=== PATIENT | female | born 1955 | race Caucasian/White ===

== ENCOUNTER → 2016-12-11 | Outpatient (CLI) | payer MEDICARE, MEDICAID ==
[~2016-12-11] MED LIST: BUPR150T13 PO; GABA600T2 PO; LEVO50TA5 PO; LOSA1TAB18 PO; PROP10TA PO
== END | disposition home or self-care (01) ==
LOC: CFH 10:40
PROVIDERS: ATTEND Nurse Practitioner
DX: Z13.820 Encounter for screening for osteoporosis (principal); Z12.2 Encounter for screening for malignant neoplasm of respiratory organs; M81.0 Age-related osteoporosis without current pathological fracture; I72.8 Aneurysm of other specified arteries; K44.9 Diaphragmatic hernia without obstruction or gangrene; F17.210 Nicotine dependence, cigarettes, uncomplicated; M41.84 Other forms of scoliosis, thoracic region
CPT/HCPCS: 77080; G0297

== ENCOUNTER 2019-10-27 13:22 | Inpatient (IN) | payer MEDICARE, MEDICAID ==
[~2019-10-27] VITALS: Ht 162.6 cm; Wt 47.8 kg
[~2019-10-27 13:22] MED LIST changes: -GABA600T2 PO; +GABA600T7 PO; -LOSA1TAB18 PO; +LOSA1TAB25 PO; -PROP10TA PO; +PROP10TA16 PO
--- NOTE | 2019-10-27 13:36 | NUR ---
TASK RN: [facility] W CO L HIP PAIN SP MECHANICAL GLF. ALSO REPORTS HEAD/NECK/ BILAT KNEE PAIN, ARRIVES IN C-COLLAR. LLE NOTED TO BE SHORTENED AND INTERNALLY ROTATED WITH OBVIOUS DEFOMITY. DISAL PULSES, SENSATION AND STRENGH INTACT. HX OF BILAT HIP FX, UNKNOWN SURGICAL STATUS. NOT ON BLOOD THINNERS BP/SPO2/ECG MONITORING IN PLACE. REPORT TO FRED RUTH, MANE
--- NOTE | 2019-10-27 13:52 | NUR ---
PUREWICK PLACED FOR COMFORT.
[2019-10-27] MEDS ORDERED: ONDANSETRON 2MG/ML, 2ML ONE (13:55)
[2019-10-27] MEDS ORDERED: HYDROmorphone 1 MG/ML, 1ML INJ ONE (13:55)
[2019-10-27] MEDS: HYDROmorphone 1 MG/ML, 1ML INJ IVPush PRN ×2 (13:59→15:39)
[2019-10-27] MEDS ORDERED: SODIUM CHLORIDE FLUSH 10ML SYR IVF ONE (14:00)
[2019-10-27] MEDS ORDERED: ONDANSETRON 2MG/ML, 2ML IVPush ONE (14:00)
--- NOTE | 2019-10-27 14:00 | NUR ---
PT LAYING ON GURNEY AWAKE & MOSTLY COMFORTABLE WHEN NOT MOVING, LINEN & GOWN CHANGED WITH PERICARE GIVEN AFTER PT LEAKED DURING VOID & PRIOR TO PUREWICK PLACEMENT, PT RESPONDS APPROP TO STAFF, COMFORT MEASURES PROVIDED, CALL LIGHT WITHIN REACH.
--- NOTE | 2019-10-27 14:10 | NUR ---
PT TO CT
[2019-10-27 14:16] LABS: ALANINE AMINOTRANSFERASE 19 U/L (12-78); ALBUMIN 3.1 g/dL (3.4-5.0); ANION GAP 7 mmol/L (5-15); CALCIUM 8.3 mg/dL (8.5-10.1); CHLORIDE 96 mmol/L (98-107); CREATININE 0.68 mg/dL (0.55-1.02)
--- NOTE | 2019-10-27 14:18 | NUR ---
PT RETURNED FROM CT
[2019-10-27 14:19] LABS: ALKALINE PHOSPHATASE 220 U/L (45-117); BILIRUBIN,TOTAL 0.3 mg/dL (0.2-1.0); TOTAL PROTEIN 6.1 g/dL (6.4-8.2)
[2019-10-27 14:25] LABS: INTERNATIONAL NORMALIZED RATIO 1.01 (0.93-1.1); PROTHROMBIN TIME 10.7 Seconds (9.6-11.5)
[2019-10-27 14:28] LABS: MEAN CORPUSCULAR HEMOGLOBIN 25.5 pg (27.0-34.8); MEAN CORPUSCULAR HGB CONC 31.1 g/dL (32.4-35.8); MEAN PLATELET VOLUME 6.5 fL (7.4-10.4); PLATELET COUNT 391 x10^3/uL (130-400); RED BLOOD COUNT 4.34 x10^6/uL (3.82-5.3)
--- NOTE | 2019-10-27 14:40 | NUR ---
PT TO RAD
[2019-10-27] MEDS ORDERED: POTASSIUM CHLORIDE 40 MEQ in SODIUM CHLORIDE 0.9% 500 ML IV ONE (15:00)
[2019-10-27 15:12] LABS: BASOPHILS % (AUTO) 0 % (0-1); EOSINOPHILS # (AUTO) 0.01 x10^3/uL (0-0.4); EOSINOPHILS % (AUTO) 0 % (1-7); LYMPHOCYTES # (AUTO) 0.81 x10^3/uL (1-3.4); LYMPHOCYTES % (AUTO) 16 % (22-44); MD SCAN; MONOCYTES # (AUTO) 0.45 x10^3/uL (0.2-0.8); MONOCYTES % (AUTO) 9 % (2-9); NEUTROPHILS % (AUTO) 75 % (42-75)
--- NOTE | 2019-10-27 16:02 | NUR ---
PT CONTINUES LAYING ON GURNEY RESTING WITH EYES CLOSED, MOSTLY COMFORTABLE WHEN NOT MOVING BUT C/O INCR PAIN AFTER XR- PAIN MED GIVEN PER EMAR, PT RESPONDS APPROP TO STAFF, COMFORT MEASURES PROVIDED, PUREWICK IN PLACE, CALL LIGHT WITHIN REACH.
--- NOTE | 2019-10-27 17:00 | NUR ---
PT LAYING ON GURNEY RESTING WITH EYES CLOSED, MOSTLY COMFORTABLE WHEN NOT MOVING BUT C/O INCR PAIN AFTER XR- PAIN MED GIVEN PER EMAR, SUPPL O2 VIA NC APPLIED WHILE SLEEPING, PT RESPONDS APPROP TO STAFF, COMFORT MEASURES PROVIDED, PUREWICK IN PLACE, CALL LIGHT WITHIN REACH.
[2019-10-27] MEDS ORDERED: PROPOFOL 10 MG/ML, 20ML ONE (17:35)
[2019-10-27] MEDS ORDERED: PROPOFOL 10 MG/ML, 20ML IVPush ONE (18:00)
--- NOTE | 2019-10-27 18:00 | NUR ---
PT CONTINUES TO LAY ON GURNEY RESTING WITH EYES CLOSED, C/O INCR PAIN- AWAITING SEDATION (CLOSED REDUCTION OF LT HIP DISLOCATION), SUPPL O2 VIA NC APPLIED WHILE RESTING, PT RESPONDS APPROP TO STAFF, COMFORT MEASURES PROVIDED, PUREWICK IN PLACE, CALL LIGHT WITHIN REACH.
--- NOTE | 2019-10-27 18:57 | NUR ---
Pt to be admitted to OR. Report called to Pedro.
[2019-10-27] MEDS ORDERED: hydrALAzine 20 MG/ML, 1ML ONE (19:40)
[2019-10-27] MEDS ORDERED: MORPHINE SULFATE 4 MG/ML, 1ML ONE (19:46)
[2019-10-27] MEDS ORDERED: BISACODYL 10 MG SUPP PR PRN (21:00)
[2019-10-27] MEDS ORDERED: ONDANSETRON ODT 4 MG PO PRN (21:00)
[2019-10-27] MEDS ORDERED: POLYETHYLENE GLYCOL 17 GM PACKET PO PRN (21:00)
[2019-10-27] MEDS ORDERED: ACETAMINOPHEN 325 MG TABLET PO PRN (21:00)
[2019-10-27] MEDS: PROPRANOLOL 10 MG TABLET PO SCH (21:21)
[2019-10-27] MEDS: GABAPENTIN 300 MG CAPSULE PO SCH (21:21)
[2019-10-27] MEDS: LOSARTAN 50MG TABLET PO SCH (21:21)
[2019-10-27] MEDS: OXYcodone IR 5MG TABLET PO PRN (21:22)
[2019-10-27 21:23] VITALS: BP 161/79
[2019-10-27] MEDS: NICOTINE 14MG/24 HR PATCH.TD24 TD SCH (21:23)
[2019-10-27] MEDS: HEPARIN 5,000 UNITS/ML, 1ML SQ SCH (21:23)
[2019-10-27 21:59] VITALS: BP 149/76
[2019-10-27] MEDS: NS + 20MEQ KCL 1,000 ML IV SCH (22:20)
[2019-10-27 23:11] VITALS: BP 161/79
[2019-10-28 00:37] VITALS: BP 157/72
[2019-10-28] MEDS: HEPARIN 5,000 UNITS/ML, 1ML SQ SCH ×3 (05:00→20:32)
[2019-10-28] MEDS: LEVOTHYROXINE 50 MCG TABLET PO SCH (05:24)
[2019-10-28] MEDS ORDERED: PROPOFOL 50 ML ONE (06:52)
[2019-10-28] MEDS ORDERED: FENTANYL PF 100 MCG/2ML ONE (06:53)
[2019-10-28] MEDS ORDERED: PROMETHAZINE 25 MG/ML, 1ML IVPush PRN (07:30)
[2019-10-28] MEDS ORDERED: DIAZEPAM 5 MG/ML, 2ML IVPush PRN (07:30)
[2019-10-28] MEDS ORDERED: ONDANSETRON 2MG/ML, 2ML IVPush PRN (07:30)
[2019-10-28] MEDS ORDERED: OXYcodone 5 MG/5 ML ORAL.SOL UDC PO PRN (07:30)
[2019-10-28] MEDS ORDERED: HYDROmorphone 1 MG/ML, 1ML INJ IVPush PRN (07:30)
[2019-10-28] MEDS ORDERED: EPHEDRINE 50 MG/ML, 1ML IM PRN (07:30)
[2019-10-28] MEDS ORDERED: ACETAMINOPHEN 325 MG TABLET PO PRN (07:30)
[2019-10-28] MEDS ORDERED: FENTANYL PF 100 MCG/2ML IV PRN (07:30)
[2019-10-28] MEDS ORDERED: OXYcodone 5 MG/5 ML ORAL.SOL UDC ONE (07:37)
[2019-10-28] MEDS: SENNA/DOCUSATE TABLET PO SCH ×2 (09:00→10:32)
[2019-10-28 09:29] VITALS: BP 124/73
[2019-10-28] MEDS ORDERED: MORPHINE SULFATE 4 MG/ML, 1ML IVPush PRN (10:00)
[2019-10-28] MEDS: LOSARTAN 50MG TABLET PO SCH ×2 (10:32→20:32)
[2019-10-28] MEDS: PROPRANOLOL 10 MG TABLET PO SCH ×3 (10:33→20:32)
[2019-10-28] MEDS: GABAPENTIN 300 MG CAPSULE PO SCH ×3 (10:33→20:32)
[2019-10-28 10:45] LABS: BASOPHILS # (AUTO) 0.01 x10^3/uL (0-0.1); BASOPHILS % (AUTO) 0 % (0-1); EOSINOPHILS # (AUTO) 0.04 x10^3/uL (0-0.4); EOSINOPHILS % (AUTO) 1 % (1-7); LYMPHOCYTES # (AUTO) 1.18 x10^3/uL (1-3.4); LYMPHOCYTES % (AUTO) 29 % (22-44); MD NO; MEAN CORPUSCULAR HEMOGLOBIN 25.6 pg (27.0-34.8); MEAN CORPUSCULAR HGB CONC 31.2 g/dL (32.4-35.8); MEAN PLATELET VOLUME 6.8 fL (7.4-10.4); MONOCYTES # (AUTO) 0.43 x10^3/uL (0.2-0.8); MONOCYTES % (AUTO) 11 % (2-9); NEUTROPHILS % (AUTO) 59 % (42-75); PLATELET COUNT 347 x10^3/uL (130-400); RED BLOOD COUNT 3.94 x10^6/uL (3.82-5.3)
[2019-10-28 10:52] LABS: ANION GAP 5 mmol/L (5-15); CALCIUM 8.1 mg/dL (8.5-10.1); CHLORIDE 104 mmol/L (98-107)
[2019-10-28 12:09] VITALS: BP 137/81
[2019-10-28] MEDS: OXYcodone IR 5MG TABLET PO PRN (12:50)
[2019-10-28] MEDS: NS + 20MEQ KCL 1,000 ML IV SCH (14:49)
[2019-10-28 18:41] VITALS: BP 124/73
[2019-10-28 20:31] VITALS: BP 129/71
[2019-10-28] MEDS: NICOTINE 14MG/24 HR PATCH.TD24 TD SCH (20:33)
[2019-10-29 01:00] VITALS: BP 108/72
[2019-10-29] MEDS: OXYcodone IR 5MG TABLET PO PRN ×2 (01:11→20:00)
[2019-10-29] MEDS: NS + 20MEQ KCL 1,000 ML IV SCH (03:32)
[2019-10-29] MEDS: LEVOTHYROXINE 50 MCG TABLET PO SCH (05:08)
[2019-10-29] MEDS: HEPARIN 5,000 UNITS/ML, 1ML SQ SCH ×3 (05:08→20:01)
[2019-10-29 06:29] LABS: ANION GAP 4 mmol/L (5-15); CALCIUM 8.1 mg/dL (8.5-10.1); CHLORIDE 108 mmol/L (98-107)
[2019-10-29 06:34] LABS: BASOPHILS # (AUTO) 0.04 x10^3/uL (0-0.1); BASOPHILS % (AUTO) 1 % (0-1); EOSINOPHILS # (AUTO) 0.04 x10^3/uL (0-0.4); EOSINOPHILS % (AUTO) 1 % (1-7); LYMPHOCYTES # (AUTO) 2.43 x10^3/uL (1-3.4); LYMPHOCYTES % (AUTO) 47 % (22-44); MD NO; MEAN CORPUSCULAR HEMOGLOBIN 26.4 pg (27.0-34.8); MEAN CORPUSCULAR HGB CONC 32.2 g/dL (32.4-35.8); MEAN PLATELET VOLUME 7.3 fL (7.4-10.4); MONOCYTES % (AUTO) 12 % (2-9); NEUTROPHILS # (AUTO) 2.04 x10^3/uL (1.8-6.8); NEUTROPHILS % (AUTO) 40 % (42-75); PLATELET COUNT 346 x10^3/uL (130-400); RED BLOOD COUNT 3.73 x10^6/uL (3.82-5.3); RED CELL DISTRIBUTION WIDTH 17.1 % (9.6-15.2)
[2019-10-29] MEDS ORDERED: GLUCAGON 1 MG IM PRN (07:00)
[2019-10-29] MEDS ORDERED: DEXTROSE 4 GM TAB.CHEW PO PRN (07:00)
[2019-10-29] MEDS ORDERED: DEXTROSE 50%, 50ML SYRINGE IVPush PRN (07:00)
[2019-10-29 08:04] VITALS: BP 101/52
[2019-10-29] MEDS: SODIUM CHLORIDE FLUSH 10ML SYR IVF SCH ×2 (08:12→20:02)
[2019-10-29] MEDS: LOSARTAN 50MG TABLET PO SCH ×2 (08:12→20:00)
[2019-10-29] MEDS: SENNA/DOCUSATE TABLET PO SCH (08:12)
[2019-10-29] MEDS: GABAPENTIN 300 MG CAPSULE PO SCH ×3 (08:12→20:01)
[2019-10-29] MEDS: PROPRANOLOL 10 MG TABLET PO SCH ×2 (08:12→20:00)
[2019-10-29] MEDS ORDERED: MAGNESIUM SULFATE PMX 2GM/50ML 50 ML IV ONE (11:00)
[2019-10-29 13:23] VITALS: BP 100/62
[2019-10-29 19:06] VITALS: BP 109/66
[2019-10-29] MEDS: NICOTINE 14MG/24 HR PATCH.TD24 TD SCH (20:01)
[2019-10-30] MEDS: NS + 20MEQ KCL 1,000 ML IV SCH ×2 (01:00→14:20)
[2019-10-30 01:40] VITALS: BP 105/68
[2019-10-30] MEDS: HEPARIN 5,000 UNITS/ML, 1ML SQ SCH ×2 (05:26→12:27)
[2019-10-30] MEDS: LEVOTHYROXINE 50 MCG TABLET PO SCH (05:26)
[2019-10-30 05:48] LABS: CHLORIDE 109 mmol/L (98-107)
[2019-10-30 05:57] LABS: ALANINE AMINOTRANSFERASE 12 U/L (12-78); ALKALINE PHOSPHATASE 149 U/L (45-117); ANION GAP 8 mmol/L (5-15); BILIRUBIN,TOTAL 0.4 mg/dL (0.2-1.0); CALCIUM 7.6 mg/dL (8.5-10.1); TOTAL PROTEIN 4.6 g/dL (6.4-8.2)
[2019-10-30 06:25] LABS: MEAN CORPUSCULAR HEMOGLOBIN 26.3 pg (27.0-34.8); MEAN PLATELET VOLUME 7.1 fL (7.4-10.4); PLATELET COUNT 261 x10^3/uL (130-400); RED BLOOD COUNT 3.55 x10^6/uL (3.82-5.3); RED CELL DISTRIBUTION WIDTH 16.6 % (9.6-15.2)
[2019-10-30 06:49] LABS: MD YES
[2019-10-30 06:52] LABS: ANISOCYTOSIS 1+; EOS#(MANUAL) 0.11 x10^3/uL (0.0-0.4); EOS% (MANUAL) 3 % (1-7); LYMPH#(MANUAL) 1.86 x10^3/uL (1-3.4); LYMPHS% (MANUAL) 53 % (22-44); MONOS#(MANUAL) 0.21 x10^3/uL (0.3-2.7); MONOS% (MANUAL) 6 % (2-9); SEG#(MANUAL) 1.33 x10^3/uL (1.8-6.8); SEGS% (MANUAL) 38 % (42-75)
[2019-10-30 06:53] LABS: <PLATELET ESTIMATE> ADEQUATE; <PLT MORPHOLOGY> NORMAL PLT MORPH
[2019-10-30 07:41] VITALS: BP 118/69
[2019-10-30] MEDS: LOSARTAN 50MG TABLET PO SCH (08:58)
[2019-10-30] MEDS: GABAPENTIN 300 MG CAPSULE PO SCH (08:58)
[2019-10-30] MEDS: PROPRANOLOL 10 MG TABLET PO SCH (08:58)
[2019-10-30] MEDS: OXYcodone IR 5MG TABLET PO PRN (08:59)
[2019-10-30] MEDS: SENNA/DOCUSATE TABLET PO SCH (08:59)
[2019-10-30] MEDS: SODIUM CHLORIDE FLUSH 10ML SYR IVF SCH (08:59)
[2019-10-30] MEDS ORDERED: HYDR10TA PO (10:55)
[2019-10-30 12:51] VITALS: BP 123/68
[2019-10-30] MEDS ORDERED: HYDROCORTISONE 10 MG TABLET PO SCH (17:00)
[2019-11-30] MEDS ORDERED: QUET50TA PO (22:47)
[2019-11-30] MEDS ORDERED: HYDR-3590 PO (22:48)
[2019-11-30] MEDS ORDERED: FLUD0.1T PO (22:50)
[2019-11-30] MEDS ORDERED: LACO200T PO (22:51)
[2019-11-30] MEDS ORDERED: LEVE750T8 PO (22:51)
[2019-11-30] MEDS ORDERED: FURO20TA3 PO (22:52)
[2019-11-30] MEDS ORDERED: OXCA150T18 PO (22:53)
[2019-12-15] MEDS ORDERED: HYDR20TA2 PO (19:34)
== END 2019-10-30 15:44 | disposition home health service (06) | DRG 559 ==
LOC: ED 14:18 → EDIP 19:37 → 4WST 19:59
PROVIDERS: ADMIT Internal Medicine; ATTEND Internal Medicine
PROC: 0SWSXJZ Revision of Synthetic Substitute in Left Hip Joint, Femoral Surface, External Approach (ICD-10-PCS; principal; 2019-10-28 07:00)
DX: T84.021A Dislocation of internal left hip prosthesis, initial encounter (principal); J96.00 Acute respiratory failure, unspecified whether with hypoxia or hypercapnia; E87.1 Hypo-osmolality and hyponatremia; E87.6 Hypokalemia; G40.909 Epilepsy, unspecified, not intractable, without status epilepticus; E03.9 Hypothyroidism, unspecified; I10 Essential (primary) hypertension; F17.210 Nicotine dependence, cigarettes, uncomplicated; Z96.643 Presence of artificial hip joint, bilateral; Z90.49 Acquired absence of other specified parts of digestive tract; W01.0XXA Fall on same level from slipping, tripping and stumbling without subsequent striking against object, initial encounter; Y93.89 Activity, other specified; Y92.098 Other place in other non-institutional residence as the place of occurrence of the external cause; Y99.8 Other external cause status; Z88.0 Allergy status to penicillin; M32.9 Systemic lupus erythematosus, unspecified; Y83.8 Other surgical procedures as the cause of abnormal reaction of the patient, or of later complication, without mention of misadventure at the time of the procedure
CPT/HCPCS: 36415; 36600; 70450; 71045; 72125; 76000; 76700; 80048; 80053; 82330; 82533; 82803; 82947; 82962; 83036; 83735; 84132; 84295; 84443; 85014; 85025; 85610; 96365; 96366; 96375; G0378; J1170; J1644; J2405; J2704; J3010; J3480; J3475; J7040

== ENCOUNTER 2019-12-15 12:46 | Inpatient (IN) | payer MEDICAID, MEDICARE ==
[~2019-12-15] VITALS: Ht 157.5 cm; Wt 48.9 kg
[~2019-12-15 12:46] MED LIST changes: +FLUD0.1T PO; +FURO20TA3 PO; +HYDR-3590 PO; +HYDR10TA PO; +LACO200T PO; +LEVE750T8 PO; +OXCA150T18 PO; +QUET50TA PO
[2019-12-15] MEDS ORDERED: SODIUM CHLORIDE FLUSH 10ML SYR IVF ONE (13:30)
[2019-12-15] MEDS ORDERED: SODIUM CHLORIDE 0.9% 1,000ML IVBOLUS ONE ×2 (13:30→17:30)
[2019-12-15 14:02] LABS: BASOPHILS # (AUTO) 0.04 x10^3/uL (0-0.1); BASOPHILS % (AUTO) 1 % (0-1); EOSINOPHILS # (AUTO) 0.03 x10^3/uL (0-0.4); EOSINOPHILS % (AUTO) 0 % (1-7); LYMPHOCYTES # (AUTO) 0.31 x10^3/uL (1-3.4); LYMPHOCYTES % (AUTO) 5 % (22-44); MD NO; MEAN CORPUSCULAR HEMOGLOBIN 26.1 pg (27.0-34.8); MEAN CORPUSCULAR HGB CONC 32.7 g/dL (32.4-35.8); MEAN CORPUSCULAR VOLUME 79.6 fL (80-100); MEAN PLATELET VOLUME 7.5 fL (7.4-10.4); MONOCYTES # (AUTO) 0.36 x10^3/uL (0.2-0.8); MONOCYTES % (AUTO) 5 % (2-9); NEUTROPHILS # (AUTO) 6.11 x10^3/uL (1.8-6.8); NEUTROPHILS % (AUTO) 89 % (42-75); PLATELET COUNT 268 x10^3/uL (130-400); RED BLOOD COUNT 3.21 x10^6/uL (3.82-5.3); RED CELL DISTRIBUTION WIDTH 17.5 % (9.6-15.2)
[2019-12-15 14:11] LABS: ALBUMIN 2.3 g/dL (3.4-5.0); ANION GAP 5 mmol/L (5-15); CALCIUM 7.5 mg/dL (8.5-10.1); CHLORIDE 84 mmol/L (98-107)
--- NOTE | 2019-12-15 14:16 | NUR ---
LATE ENTRY FOR ARRIVAL AT 1215 FOUND BY RESIDENTIAL UNRESPONSIVE, AED WAS ATTACHED AND IT INSTRUCTED THEM TO BEGIN CPR. CPR IN PROGRSS WHEN EMS ARRIVED. +PULSE PER EMS, PB 88/54 SR 80'S RA SAT L0W 80'S. 4L NC PLACED = 94% ETCO2 = 20 GCS 3-2-4 A&O X 1 PT ON ALL MONITORS, EKG COMPLETED. DR CORONA AT BEDSIDE. PT ASSESSMENT, POC DISCUSSED AND ORDERS REC'D. Addendum: 12/15/19 at 1505 by CARLOS ARRIVAL TIME S/B 1245
--- NOTE | 2019-12-15 14:18 | NUR ---
LATE ENTRY [address], PT TOLLERATED WELL, VSS. STRAIGHT CATH FOR URINE AND RECTAL TEMP PROBE PLACED. PT TOLLERATED WELL.
--- NOTE | 2019-12-15 14:18 | NUR ---
LATE ENTRY 1330, PT TO CT WITH NURSE CASE MANAGER
--- NOTE | 2019-12-15 14:19 | NUR ---
PT TO RADIOLOGY WITH TECH TRANSPORT. PT DAUGHTER, CARLITOS AT BEDSIDE, PT RESPONDS TO DAUGHTER AND VERBALIZES "I LOVE YOU"
--- NOTE | 2019-12-15 14:19 | NUR ---
LATE ENTRY, PT DAUGHTER, CARLITOS AT BEDSIDE, PT ASSESSMENT AND POC REVIEWED. DAUGHTER STATES THAT YESTERDAY 12/13 SHE SPOKE WITH HER MOTHER ON THE PHONE AND SHE WAS ALERT AND CONVERSING W/O DIFFICULTY. PT NORMALLY LIVES ALONE AT HOME, WITH A HOUSE KEEPER WHO COMES ONCE A WEEK TO HELP WITH CLEANING. SHE HAS HAD MULTIPLE FALLS RECENTLY AND REQURED HER LEFT HIP REPLACEMENT TO BE REVISED. SHE WAS AT [facility] FOR REHAB.
[2019-12-15 14:21] LABS: ALANINE AMINOTRANSFERASE 30 U/L (12-78); ALKALINE PHOSPHATASE 146 U/L (45-117); BILIRUBIN,TOTAL 0.7 mg/dL (0.2-1.0); CREATININE 0.72 mg/dL (0.55-1.02); FREE T4 (FREE THYROXINE) 1.32 ng/dL (0.76-1.46); TOTAL PROTEIN 4.5 g/dL (6.4-8.2)
--- NOTE | 2019-12-15 14:23 | NUR ---
CARLITOS CAMARGO [phone] AND DEREK [phone] (UMESH)
[2019-12-15 14:33] LABS: SALICYLATE LEVEL < 1.7 mg/dL (2.8-20.0)
[2019-12-15] MEDS ORDERED: POTASSIUM CHLORIDE 40 MEQ in SODIUM CHLORIDE 0.9% 1,000 ML IV ONE ×2 (14:36→16:00)
--- NOTE | 2019-12-15 14:50 | NUR ---
SBAR RPT TO FARAZ MACKEY.
[2019-12-15 14:56] LABS: MICROSCOPIC NOT IND
[2019-12-15 15:24] LABS: AMPHETAMINE SCREEN, URINE Negative (Negative); BARBITURATE SCREEN, URINE Negative (Negative); BENZODIAZEPINE SCREEN, URINE Negative (Negative); CANNABINOID SCREEN, URINE Negative (Negative); COCAINE SCREEN, URINE Negative (Negative); METHADONE SCREEN, URINE Negative (Negative); OPIATE SCREEN, URINE Negative (Negative)
--- NOTE | 2019-12-15 15:30 | NUR ---
DARYL URBINA STATES SHE HAS AN APPOINTMENT. CARLITOS TOOK PT'S PURSE WITH HER.
[2019-12-15] MEDS ORDERED: NS + 40MEQ KCL 1,000 ML IV ONE (15:39)
--- NOTE | 2019-12-15 15:48 | NUR ---
MD AWARE OF CURRENT BP WITH NO FURTHER ORDERS AND IV FLUID WITH KCL AT 250 STARTED NOTED ON JUN. ADDITIONALLY PASSED ON CONCERN THAT PT PULLED OUT ORTHOPEDIC PAIN PUMP AND POSSIBILITY OF PART OF PUMP REMAINING WITHIN PT'S BODY. WILL CONTINUE TO MONITOR PT.
--- NOTE | 2019-12-15 15:50 | NUR ---
PT KNOWS HER NAME BUT NOT ALERT TO PLACE, TIME. PT REPEATING "I NEED TO GO HOME. I WANT TO GO HOME.' ATTEMPTING TO ORIENT PT AND REASSURE HER WE ARE TAKING CARE OF HER.
--- NOTE | 2019-12-15 15:59 | NUR ---
HOSPITALIST DR REECE AT BEDSIDE.
[2019-12-15] MEDS: SODIUM CHLORIDE 0.9% 1,000 ML IV SCH (16:21)
[2019-12-15] MEDS ORDERED: DEXTROSE 50%, 50ML SYRINGE IVPush PRN (16:30)
[2019-12-15] MEDS ORDERED: LABETALOL 5MG/ML, 20ML IVPush PRN (16:30)
[2019-12-15] MEDS ORDERED: morphine SULFATE 10 MG/ML, 1ML IVPush PRN (16:30)
[2019-12-15] MEDS ORDERED: DEXTROSE 4 GM TAB.CHEW PO PRN (16:30)
[2019-12-15] MEDS ORDERED: GLUCAGON 1 MG IM PRN (16:30)
[2019-12-15] MEDS ORDERED: ACETAMINOPHEN 325 MG TABLET PO PRN (16:30)
[2019-12-15] MEDS ORDERED: hydrALAzine 20 MG/ML, 1ML IVPush PRN (16:30)
[2019-12-15] MEDS ORDERED: OXYcodone/APAP 5/325MG TABLET PO PRN (16:30)
[2019-12-15] MEDS ORDERED: SODIUM CHLORIDE FLUSH 10ML SYR IVF PRN (16:30)
[2019-12-15] MEDS ORDERED: HYDROCORTISONE 100 MG INJ. ONE (16:57)
[2019-12-15] MEDS ORDERED: POTASSIUM CHLORIDE 40 MEQ in SODIUM CHLORIDE 0.9% 500 ML IV ONE (17:00)
[2019-12-15] MEDS: HYDROCORTISONE 100 MG INJ. IVPush SCH ×2 (17:14→22:30)
--- NOTE | 2019-12-15 17:32 | NUR ---
BECAUSE PT REMAINS CONFUSED, RECEIVED VERBAL CONSENT FROM PT'S DAUGHTER DEREK MARROQUIN OVER TELEPHONE FOR PROCEDURAL SEDATION AND REDUCTION OF LEFT HIP.
[2019-12-15] MEDS ORDERED: ETOMIDATE 20 MG/10 ML ONE (17:54)
--- NOTE | 2019-12-15 17:58 | NUR ---
SEE DOCUMENTATION FOR PROCEDURATL SEDATION FOR NOTES REGARDING REDUCTION OF LEFT HIP.
[2019-12-15] MEDS ORDERED: ETOMIDATE 20 MG/10 ML IVPush ONE (18:00)
--- NOTE | 2019-12-15 18:36 | NUR ---
DR HALE AT BEDSIDE WITH VERBAL ORDER TO PLACE LEFT KNEE IN IMMOBILIZER.
--- NOTE | 2019-12-15 18:52 | NUR ---
BS REPORT FROM KEY RN. PT CARE TRANSFERRED AT THIS TIME. PT RESTING ON GURNEY, NAD, APPEARS COMFORTABLE, VSS, EVEN AND UNLABORED RESPIRATIONS, TALKING WITH STAFF, WCTM. WAITING FOR ADMIT BED
--- NOTE | 2019-12-15 18:57 | NUR ---
REPORT TO MONICA RUTH
--- NOTE | 2019-12-15 18:58 | NUR ---
Knee Immobilizer placed a this time per
--- NOTE | 2019-12-15 19:29 | NUR ---
REPORT CALLED TO SPRING RUTH, PT CARE TO BE TRANSFERRED UPON ARRIVAL TO THE FLOOR. PT NAD, NO CHANGE IN CONDITION AT THIS TIME. LEFT KNEE IMMOBILIZER INPLACE. NERIS. RN TO CALL AND UPDATE DAUGHTER AT THIS TIME
[2019-12-15] MEDS ORDERED: OXYC5CAP2 PO (19:34)
[2019-12-15] MEDS ORDERED: NICO-486 TD (19:34)
[2019-12-15] MEDS ORDERED: HYDR20TA23 PO (19:34)
[2019-12-15 20:52] VITALS: BP 105/62
[2019-12-15] MEDS: SODIUM CHLORIDE FLUSH 10ML SYR IVF SCH (21:00)
[2019-12-15] MEDS ORDERED: TEMPLATE NON-FORMULARY MED. (Gabapentin** 600 MG) PO SCH (21:00)
[2019-12-15 21:15] LABS: ANION GAP 5 mmol/L (5-15); CALCIUM 7.6 mg/dL (8.5-10.1); CHLORIDE 89 mmol/L (98-107); CREATININE 0.76 mg/dL (0.55-1.02)
[2019-12-15] MEDS: OXCARBAZEPINE 150 MG TABLET PO SCH (21:33)
[2019-12-15] MEDS: LEVETIRACETAM 500 MG TABLET PO SCH (21:33)
[2019-12-15] MEDS: LACOSAMIDE 50 MG TAB PO SCH (21:33)
[2019-12-16] MEDS: SODIUM CHLORIDE 0.9% 1,000 ML IV SCH (00:21)
[2019-12-16 01:01] VITALS: BP 102/60
[2019-12-16] MEDS: HYDROCORTISONE 100 MG INJ. IVPush SCH ×4 (03:23→23:05)
[2019-12-16 06:31] LABS: CHLORIDE 93 mmol/L (98-107)
[2019-12-16 06:34] LABS: BASOPHILS % (AUTO) 0 % (0-1); EOSINOPHILS % (AUTO) 0 % (1-7); LYMPHOCYTES # (AUTO) 0.33 x10^3/uL (1-3.4); LYMPHOCYTES % (AUTO) 6 % (22-44); MD NO; MEAN CORPUSCULAR HEMOGLOBIN 25.9 pg (27.0-34.8); MEAN CORPUSCULAR HGB CONC 32.4 g/dL (32.4-35.8); MEAN CORPUSCULAR VOLUME 79.8 fL (80-100); MEAN PLATELET VOLUME 7.9 fL (7.4-10.4); MONOCYTES # (AUTO) 0.35 x10^3/uL (0.2-0.8); MONOCYTES % (AUTO) 6 % (2-9); NEUTROPHILS # (AUTO) 5.13 x10^3/uL (1.8-6.8); NEUTROPHILS % (AUTO) 88 % (42-75); PLATELET COUNT 241 x10^3/uL (130-400); RED BLOOD COUNT 3.08 x10^6/uL (3.82-5.3); RED CELL DISTRIBUTION WIDTH 17.6 % (9.6-15.2)
[2019-12-16 06:45] LABS: ALANINE AMINOTRANSFERASE 24 U/L (12-78); ALBUMIN 2.4 g/dL (3.4-5.0); ALKALINE PHOSPHATASE 135 U/L (45-117); ANION GAP 7 mmol/L (5-15); BILIRUBIN,TOTAL 0.7 mg/dL (0.2-1.0); CALCIUM 7.7 mg/dL (8.5-10.1); TOTAL PROTEIN 4.5 g/dL (6.4-8.2)
[2019-12-16 07:24] VITALS: BP 127/69
[2019-12-16] MEDS ORDERED: MAGNESIUM SULFATE PMX 4GM/100M 100 ML IV ONE (08:30)
[2019-12-16] MEDS ORDERED: ERGOCALCIFEROL 50,000 UNIT CAPSULE PO SCH (08:30)
[2019-12-16] MEDS ORDERED: LEVOTHYROXINE 100 MCG INJ IVPush SCH (09:00)
[2019-12-16] MEDS: LEVETIRACETAM 500 MG TABLET PO SCH ×2 (09:00→20:08)
[2019-12-16] MEDS: LACOSAMIDE 50 MG TAB PO SCH ×2 (09:00→20:08)
[2019-12-16] MEDS: OXCARBAZEPINE 150 MG TABLET PO SCH ×2 (09:00→20:08)
[2019-12-16] MEDS ORDERED: POTASSIUM CHLORIDE 40 MEQ in SODIUM CHLORIDE 0.9% 500 ML IV SCH (09:00)
[2019-12-16] MEDS: SODIUM CHLORIDE FLUSH 10ML SYR IVF SCH ×2 (10:43→20:08)
[2019-12-16 11:28] LABS: ANION GAP 7 mmol/L (5-15); CHLORIDE 94 mmol/L (98-107)
[2019-12-16 11:29] LABS: CREATININE 0.66 mg/dL (0.55-1.02)
[2019-12-16 13:26] LABS: OSMOLALITY,URINE 239 mOsm/kg (500-850)
[2019-12-16] MEDS: QUETIAPINE 100MG TABLET PO SCH (14:35)
[2019-12-16] MEDS: D5%-0.45NACL+KCL 30MEQ 1,000 ML IV SCH (14:36)
[2019-12-16 14:56] VITALS: BP 136/82
[2019-12-16 16:37] LABS: ANION GAP 7 mmol/L (5-15); CALCIUM 8.1 mg/dL (8.5-10.1); CHLORIDE 92 mmol/L (98-107); CREATININE 0.75 mg/dL (0.55-1.02)
[2019-12-16 18:40] VITALS: BP 134/74
[2019-12-16] MEDS ORDERED: POTASSIUM CHLORIDE 20 MEQ TAB.ER.PRT PO SCH (21:00)
[2019-12-17 00:19] VITALS: BP 142/81
[2019-12-17] MEDS: D5%-0.45NACL+KCL 30MEQ 1,000 ML IV SCH (03:20)
[2019-12-17] MEDS: HYDROCORTISONE 100 MG INJ. IVPush SCH (04:35)
[2019-12-17 06:11] LABS: BASOPHILS % (AUTO) 0 % (0-1); EOSINOPHILS % (AUTO) 0 % (1-7); LYMPHOCYTES # (AUTO) 0.38 x10^3/uL (1-3.4); LYMPHOCYTES % (AUTO) 5 % (22-44); MD NO; MEAN CORPUSCULAR HEMOGLOBIN 25.8 pg (27.0-34.8); MEAN CORPUSCULAR HGB CONC 32.1 g/dL (32.4-35.8); MEAN CORPUSCULAR VOLUME 80.3 fL (80-100); MEAN PLATELET VOLUME 7.9 fL (7.4-10.4); MONOCYTES # (AUTO) 0.39 x10^3/uL (0.2-0.8); MONOCYTES % (AUTO) 5 % (2-9); NEUTROPHILS # (AUTO) 6.79 x10^3/uL (1.8-6.8); NEUTROPHILS % (AUTO) 90 % (42-75); PLATELET COUNT 243 x10^3/uL (130-400); RED BLOOD COUNT 3.09 x10^6/uL (3.82-5.3); RED CELL DISTRIBUTION WIDTH 17.6 % (9.6-15.2)
[2019-12-17 08:06] VITALS: BP 162/84
[2019-12-17] MEDS: SODIUM CHLORIDE FLUSH 10ML SYR IVF SCH ×2 (08:43→20:59)
[2019-12-17] MEDS: QUETIAPINE 100MG TABLET PO SCH (08:47)
[2019-12-17] MEDS: OXCARBAZEPINE 150 MG TABLET PO SCH ×2 (08:48→20:59)
[2019-12-17] MEDS: LEVETIRACETAM 500 MG TABLET PO SCH ×2 (08:48→20:59)
[2019-12-17] MEDS: LACOSAMIDE 50 MG TAB PO SCH ×2 (08:48→20:59)
[2019-12-17] MEDS: LEVOTHYROXINE 50 MCG TABLET PO SCH (08:49)
[2019-12-17] MEDS ORDERED: POTASSIUM CHLORIDE 20 MEQ TAB.ER.PRT PO SCH (09:00)
[2019-12-17] MEDS ORDERED: POTASSIUM CHLORIDE 40 MEQ in SODIUM CHLORIDE 0.9% 500 ML IV ONE (09:00)
[2019-12-17 11:53] LABS: ANION GAP 6 mmol/L (5-15); CALCIUM 8.4 mg/dL (8.5-10.1); CHLORIDE 92 mmol/L (98-107)
[2019-12-17 12:18] VITALS: BP 153/73
[2019-12-17] MEDS: SODIUM CHLORIDE 0.9% 1,000 ML IV SCH (14:45)
[2019-12-17 14:51] VITALS: BP 153/74
[2019-12-17 17:38] LABS: ANION GAP 3 mmol/L (5-15); CALCIUM 8.8 mg/dL (8.5-10.1); CHLORIDE 95 mmol/L (98-107); CREATININE 0.55 mg/dL (0.55-1.02)
[2019-12-17 19:13] VITALS: BP 158/82
[2019-12-18 01:13] VITALS: BP 139/75
[2019-12-18] MEDS: SODIUM CHLORIDE 0.9% 1,000 ML IV SCH ×3 (03:41→17:20)
[2019-12-18] MEDS: LEVOTHYROXINE 50 MCG TABLET PO SCH (05:49)
[2019-12-18 06:03] LABS: BASOPHILS # (AUTO) 0.01 x10^3/uL (0-0.1); BASOPHILS % (AUTO) 0 % (0-1); EOSINOPHILS # (AUTO) 0.01 x10^3/uL (0-0.4); EOSINOPHILS % (AUTO) 0 % (1-7); LYMPHOCYTES # (AUTO) 0.97 x10^3/uL (1-3.4); LYMPHOCYTES % (AUTO) 13 % (22-44); MD NO; MEAN CORPUSCULAR HEMOGLOBIN 25.8 pg (27.0-34.8); MEAN CORPUSCULAR HGB CONC 32.1 g/dL (32.4-35.8); MEAN CORPUSCULAR VOLUME 80.4 fL (80-100); MEAN PLATELET VOLUME 7.6 fL (7.4-10.4); MONOCYTES # (AUTO) 0.74 x10^3/uL (0.2-0.8); MONOCYTES % (AUTO) 10 % (2-9); NEUTROPHILS # (AUTO) 5.62 x10^3/uL (1.8-6.8); NEUTROPHILS % (AUTO) 76 % (42-75); PLATELET COUNT 232 x10^3/uL (130-400); RED BLOOD COUNT 3.03 x10^6/uL (3.82-5.3)
[2019-12-18 06:16] LABS: CHLORIDE 96 mmol/L (98-107)
[2019-12-18 06:24] LABS: ALANINE AMINOTRANSFERASE 16 U/L (12-78); ALBUMIN 2.3 g/dL (3.4-5.0); ALKALINE PHOSPHATASE 133 U/L (45-117); ANION GAP 3 mmol/L (5-15); BILIRUBIN,TOTAL 0.6 mg/dL (0.2-1.0); CALCIUM 8.1 mg/dL (8.5-10.1); CREATININE 0.58 mg/dL (0.55-1.02); TOTAL PROTEIN 4.8 g/dL (6.4-8.2)
[2019-12-18 06:35] VITALS: BP 177/80
[2019-12-18] MEDS: OXCARBAZEPINE 150 MG TABLET PO SCH ×2 (08:59→20:57)
[2019-12-18] MEDS: QUETIAPINE 100MG TABLET PO SCH (08:59)
[2019-12-18] MEDS: LACOSAMIDE 50 MG TAB PO SCH ×2 (08:59→20:56)
[2019-12-18] MEDS: SODIUM CHLORIDE FLUSH 10ML SYR IVF SCH ×2 (09:00→20:57)
[2019-12-18] MEDS: LEVETIRACETAM 500 MG TABLET PO SCH ×2 (09:00→20:57)
[2019-12-18 12:48] VITALS: BP 159/87
[2019-12-18 19:21] VITALS: BP 144/89
[2019-12-18] MEDS ORDERED: TEMPLATE NON-FORMULARY MED. (Losartan/Hydrochlorothiazide** (Losartan-Hctz 100-12.5 Mg Tab PO SCH (21:00)
[2019-12-19 01:17] VITALS: BP 134/69
[2019-12-19] MEDS: LEVOTHYROXINE 50 MCG TABLET PO SCH (05:34)
[2019-12-19 07:57] VITALS: BP 177/51
[2019-12-19 08:00] VITALS: BP 173/84
[2019-12-19] MEDS ORDERED: HYDROCHLOROTHIAZIDE 12.5 MG CAPSULE PO SCH (09:00)
[2019-12-19] MEDS ORDERED: LOSARTAN 100 MG TAB PO SCH (09:00)
[2019-12-19] MEDS ORDERED: AMLO-150 PO (09:10)
[2019-12-19] MEDS ORDERED: ERGO500017 PO (09:10)
[2019-12-19] MEDS ORDERED: HYDROCORTISONE 20 MG TABLET PO SCH (09:30)
[2019-12-19] MEDS ORDERED: AMLODIPINE 10 MG TAB PO SCH (09:30)
[2019-12-19] MEDS: LEVETIRACETAM 500 MG TABLET PO SCH (10:28)
[2019-12-19] MEDS: OXCARBAZEPINE 150 MG TABLET PO SCH (10:28)
[2019-12-19] MEDS: QUETIAPINE 100MG TABLET PO SCH (10:28)
[2019-12-19] MEDS: LACOSAMIDE 50 MG TAB PO SCH (10:28)
[2019-12-19] MEDS: SODIUM CHLORIDE FLUSH 10ML SYR IVF SCH (10:29)
[2019-12-19] MEDS: SODIUM CHLORIDE 0.9% 1,000 ML IV SCH (10:30)
[2019-12-20] MEDS ORDERED: HYDROCORTISONE 10 MG TABLET PO SCH (09:00)
== END 2019-12-19 13:12 | DRG 559 ==
LOC: ED 15:05 → EDIP 15:21 → 4EST 19:50
PROVIDERS: ADMIT Internal Medicine; ATTEND Internal Medicine
PROC: 0SS9XZZ Reposition Right Hip Joint, External Approach (ICD-10-PCS; principal; 2019-12-15)
DX: T84.021A Dislocation of internal left hip prosthesis, initial encounter (principal); G93.41 Metabolic encephalopathy; E43 Unspecified severe protein-calorie malnutrition; Z68.1 Body mass index [BMI] 19.9 or less, adult; E87.1 Hypo-osmolality and hyponatremia; E87.3 Alkalosis; E86.0 Dehydration; D64.9 Anemia, unspecified; E87.6 Hypokalemia; F17.200 Nicotine dependence, unspecified, uncomplicated; I10 Essential (primary) hypertension; G40.909 Epilepsy, unspecified, not intractable, without status epilepticus; M19.90 Unspecified osteoarthritis, unspecified site; Z96.643 Presence of artificial hip joint, bilateral; Y92.89 Other specified places as the place of occurrence of the external cause; Y79.2 Prosthetic and other implants, materials and accessory orthopedic devices associated with adverse incidents; Z20.828 Contact with and (suspected) exposure to other viral communicable diseases; Z88.0 Allergy status to penicillin
CPT/HCPCS: 36415; 36600; 70450; 71045; 72125; 80048; 80053; 80307; 81003; 82306; 82533; 82607; 82728; 82803; 83540; 83550; 83735; 83930; 83935; 84100; 84132; 84439; 84443; 85025; 87635; 93005; 96360; 96361; 99285; G0378; J3480; J1720; J3475; J7030; J7040

== ENCOUNTER 2020-02-24 11:49 | Inpatient (IN) | payer MEDICARE, MEDICAID ==
[~2020-02-24] VITALS: Ht 162.6 cm; Wt 41.0 kg
[~2020-02-24 11:49] MED LIST changes: +AMLO-150 PO; +ERGO500017 PO; +HYDR20TA2 PO; +NICO-486 TD; +OXYC5CAP2 PO
[2020-02-24] MEDS ORDERED: FURO40TA6 PO (12:02)
--- NOTE | 2020-02-24 12:22 | NUR ---
PATIENT BIB [facility] WITH CHIEF C/O WEAKNESS AND FAILURE TO THRIVE. PER EMS PATIENT'S FRIEND FOUND PATIENT SLUMPED OVER ON COUCH AND CALLED EMS. ON ARRIVAL: FSBS 93, VSS ECG OBTAINED, PLACED ON CHANGE CONTROL COORDINATOR, PIV PLACED FROM [facility] 1ST SET OF BLOOD CULTURES DRAWN. TO [facility] SH[facility]
[2020-02-24 12:24] LABS: BASOPHILS % (AUTO) 1 % (0-1); EOSINOPHILS % (AUTO) 0 % (1-7); LYMPHOCYTES % (AUTO) 25 % (22-44); MEAN CORPUSCULAR HGB CONC 32.3 g/dL (32.4-35.8); MEAN PLATELET VOLUME 6.8 fL (7.4-10.4); MONOCYTES % (AUTO) 9 % (2-9); NEUTROPHILS % (AUTO) 65 % (42-75); PLATELET COUNT 328 x10^3/uL (130-400); RED BLOOD COUNT 4.78 x10^6/uL (3.82-5.3); RED CELL DISTRIBUTION WIDTH 18.1 % (9.6-15.2)
[2020-02-24 12:32] LABS: ALANINE AMINOTRANSFERASE 21 U/L (12-78); ALBUMIN 2.9 g/dL (3.4-5.0); CREATININE 0.88 mg/dL (0.55-1.02)
[2020-02-24 12:43] LABS: ALKALINE PHOSPHATASE 202 U/L (45-117); ANION GAP 9 mmol/L (5-15); BILIRUBIN,TOTAL 0.5 mg/dL (0.2-1.0); CHLORIDE 92 mmol/L (98-107); TOTAL PROTEIN 5.8 g/dL (6.4-8.2)
[2020-02-24 12:44] LABS: SALICYLATE LEVEL < 1.7 mg/dL (2.8-20.0)
[2020-02-24 13:11] LABS: MD MORPH REVIEW ONLY; MICROCYTOSIS 2+
[2020-02-24 13:12] LABS: OVALOCYTES 1+
[2020-02-24 13:13] LABS: <PLATELET ESTIMATE> ADEQUATE; <PLT MORPHOLOGY> NORMAL PLT MORPH
--- NOTE | 2020-02-24 13:14 | NUR ---
PATIENT ARRIVED SOILED WITH FECES, ADULT DIAPER COMPLETELY FILLED WITH FECES. BREAK RN AND MEMBER OF CONGRESS CLEANED PATIENT UP, AND COLLECTED URINE SAMPLE VIA STRAIGHT CATH WITH NO ISSUES.
[2020-02-24 13:24] LABS: MICROSCOPIC INDICATED
--- NOTE | 2020-02-24 13:28 | NUR ---
IV POTASSIUM HUNG.
[2020-02-24] MEDS ORDERED: POTASSIUM CHLORIDE 40 MEQ in SODIUM CHLORIDE 0.9% 500 ML IV ONE (13:30)
--- NOTE | 2020-02-24 13:54 | NUR ---
PATIENT ASSISTED TO BS, VERY UNSTEADY ON FEET, PATIENT REFUSING BEDPAN. PATIENT ASSITED BACK TO [facility], CONNECTED TO QUALITY CONTROL SPECIALIST, NO SIGNS OF ACUTE DISTRESS.
[2020-02-24] MEDS ORDERED: POTASSIUM CHLORIDE 20 MEQ PACKET PO ONE (14:00)
--- NOTE | 2020-02-24 14:15 | NUR ---
THROUGHPUT RN:: REPORT GIVEN TO DHRUV RUTH FOR ROOM 403-2
[2020-02-24] MEDS ORDERED: hydrALAzine 20 MG/ML, 1ML IVPush PRN (14:30)
[2020-02-24] MEDS ORDERED: ONDANSETRON 2MG/ML, 2ML IVPush PRN (14:30)
[2020-02-24] MEDS: POTASSIUM CHLORIDE 20 MEQ in LACTATED RINGERS 1,000 ML IV SCH (14:30)
[2020-02-24 14:33] LABS: AMPHETAMINE SCREEN, URINE Negative (Negative); BARBITURATE SCREEN, URINE Negative (Negative); BENZODIAZEPINE SCREEN, URINE Negative (Negative); CANNABINOID SCREEN, URINE Negative (Negative); COCAINE SCREEN, URINE Negative (Negative); METHADONE SCREEN, URINE Negative (Negative); OPIATE SCREEN, URINE Negative (Negative)
[2020-02-24 15:27] LABS: HCT (SEDRATE) 36.7 % (34.6-47.8)
[2020-02-24 15:34] LABS: INTERNATIONAL NORMALIZED RATIO 1.03 (0.93-1.1); PROTHROMBIN TIME 10.9 Seconds (9.6-11.5)
[2020-02-24 15:35] LABS: IRON LEVEL 28 mcg/dL (50-170)
[2020-02-24 15:44] VITALS: BP 154/89
[2020-02-24 15:46] LABS: CHLORIDE,URINE RANDOM 88 mmol/L; POTASSIUM,URINE RANDOM 16 mmol/L; SODIUM,URINE RANDOM 70 mmol/L
[2020-02-24 15:59] LABS: % IRON SATURATION 9 % (20-55); TOTAL IRON BINDING CAPACITY 300 mcg/dL (250-450)
[2020-02-24] MEDS ORDERED: LORazepam 2 MG/ML, 1ML IVPush ONE (16:00)
[2020-02-24] MEDS: ERGOCALCIFEROL 50,000 UNIT CAPSULE PO SCH (16:10)
[2020-02-24] MEDS: GABAPENTIN 300 MG CAPSULE PO SCH ×2 (16:10→20:56)
[2020-02-24] MEDS ORDERED: GADOTERATE 7.5 MMOL/15 ML VIAL ONE (16:55)
[2020-02-24 19:17] VITALS: BP 124/77
[2020-02-24] MEDS: LACOSAMIDE 50 MG TAB PO SCH (20:56)
[2020-02-24] MEDS: HYDROCORTISONE 10 MG TABLET PO SCH (20:56)
[2020-02-24] MEDS: OXCARBAZEPINE 150 MG TABLET PO SCH (20:56)
[2020-02-24] MEDS: FAMOTIDINE 20 MG/2 ML IVPush SCH (20:56)
[2020-02-24] MEDS: MAGNESIUM CHLORIDE 70MG TAB DR PO SCH (20:56)
[2020-02-24] MEDS: LEVETIRACETAM 500 MG TABLET PO SCH (20:56)
[2020-02-24 21:06] LABS: TROPONIN I 0.148 ng/mL (0.000-0.045)
[2020-02-24] MEDS: CEFTRIAXONE PMX 2GM/50ML 50 ML IVPB SCH (21:47)
[2020-02-25 01:04] VITALS: BP 114/68
[2020-02-25] MEDS: ACETAMINOPHEN 325 MG TABLET PO PRN (01:17)
[2020-02-25] MEDS: LEVOTHYROXINE 50 MCG TABLET PO SCH (05:49)
[2020-02-25 06:12] LABS: CHLORIDE 98 mmol/L (98-107)
[2020-02-25 06:24] LABS: ALANINE AMINOTRANSFERASE 16 U/L (12-78); ALBUMIN 2.2 g/dL (3.4-5.0); ALKALINE PHOSPHATASE 150 U/L (45-117); ANION GAP 7 mmol/L (5-15); BILIRUBIN,TOTAL 0.4 mg/dL (0.2-1.0); CALCIUM 7.7 mg/dL (8.5-10.1); CHOL/HDL RATIO 1.8; CHOLESTEROL, TOTAL 142 mg/dL (140-239); CREATININE 0.84 mg/dL (0.55-1.02); HDL CHOL % 56 % (28-40); HDL CHOLESTEROL (DIRECT) 79 mg/dL (40-60); LDL CHOLESTEROL,CALCULATED 51 mg/dL (54-169); LDL/HDL RATIO 0.6 (0.5-3.0); TOTAL PROTEIN 4.6 g/dL (6.4-8.2); TRIGLYCERIDES 59 mg/dL (50-200); VLDL CHOLESTEROL 12 mg/dL (0-25)
[2020-02-25 07:39] VITALS: BP 99/59
[2020-02-25 07:50] LABS: BASOPHILS % (AUTO) 1 % (0-1); EOSINOPHILS % (AUTO) 0 % (1-7); LYMPHOCYTES % (AUTO) 31 % (22-44); MEAN CORPUSCULAR HEMOGLOBIN 22.8 pg (27.0-34.8); MEAN PLATELET VOLUME 6.8 fL (7.4-10.4); MONOCYTES % (AUTO) 10 % (2-9); NEUTROPHILS % (AUTO) 58 % (42-75); PLATELET COUNT 254 x10^3/uL (130-400); RED BLOOD COUNT 3.84 x10^6/uL (3.82-5.3); RED CELL DISTRIBUTION WIDTH 18.1 % (9.6-15.2)
[2020-02-25] MEDS: FAMOTIDINE 20 MG/2 ML IVPush SCH (07:57)
[2020-02-25] MEDS: MAGNESIUM CHLORIDE 70MG TAB DR PO SCH ×2 (07:57→20:39)
[2020-02-25] MEDS: FLUDROCORTISONE 0.1 MG TABLET PO SCH (07:58)
[2020-02-25] MEDS: POTASSIUM CHLORIDE 20 MEQ TAB.ER.PRT PO SCH (07:58)
[2020-02-25] MEDS: HYDROCORTISONE 20 MG TABLET PO SCH (07:58)
[2020-02-25] MEDS: LEVETIRACETAM 500 MG TABLET PO SCH ×2 (07:58→20:38)
[2020-02-25] MEDS: OXCARBAZEPINE 150 MG TABLET PO SCH ×2 (07:59→20:39)
[2020-02-25] MEDS: QUETIAPINE 100MG TABLET PO SCH (07:59)
[2020-02-25] MEDS: GABAPENTIN 300 MG CAPSULE PO SCH ×3 (07:59→20:38)
[2020-02-25] MEDS: AMLODIPINE 10 MG TAB PO SCH (07:59)
[2020-02-25] MEDS: LACOSAMIDE 50 MG TAB PO SCH ×2 (07:59→20:39)
[2020-02-25 08:04] LABS: MD NO
[2020-02-25] MEDS: POTASSIUM CHLORIDE 20 MEQ in LACTATED RINGERS 1,000 ML IV SCH (11:12)
[2020-02-25] MEDS: FERROUS SULFATE 325 MG TABLET PO SCH ×2 (12:06→17:16)
[2020-02-25 12:51] VITALS: BP 153/72
[2020-02-25 18:48] VITALS: BP 137/84
[2020-02-25] MEDS: FAMOTIDINE 20 MG TABLET PO SCH (20:38)
[2020-02-25] MEDS: HYDROCORTISONE 10 MG TABLET PO SCH (20:39)
[2020-02-25] MEDS: CEFTRIAXONE PMX 2GM/50ML 50 ML IVPB SCH (22:02)
[2020-02-26 00:37] VITALS: BP 139/81
[2020-02-26] MEDS: POTASSIUM CHLORIDE 20 MEQ in LACTATED RINGERS 1,000 ML IV SCH ×2 (01:25→15:33)
[2020-02-26] MEDS: LEVOTHYROXINE 50 MCG TABLET PO SCH (05:57)
[2020-02-26 07:35] VITALS: BP 144/81
[2020-02-26] MEDS: QUETIAPINE 100MG TABLET PO SCH (09:00)
[2020-02-26] MEDS: LACOSAMIDE 50 MG TAB PO SCH ×2 (09:55→20:47)
[2020-02-26] MEDS: HYDROCORTISONE 20 MG TABLET PO SCH (09:56)
[2020-02-26] MEDS: MAGNESIUM CHLORIDE 70MG TAB DR PO SCH ×2 (09:56→20:49)
[2020-02-26] MEDS: FAMOTIDINE 20 MG TABLET PO SCH ×2 (09:56→20:48)
[2020-02-26] MEDS: LEVETIRACETAM 500 MG TABLET PO SCH ×2 (09:58→20:49)
[2020-02-26] MEDS: AMLODIPINE 10 MG TAB PO SCH (09:58)
[2020-02-26] MEDS: OXCARBAZEPINE 150 MG TABLET PO SCH ×2 (09:58→20:50)
[2020-02-26] MEDS: FLUDROCORTISONE 0.1 MG TABLET PO SCH (09:58)
[2020-02-26] MEDS: GABAPENTIN 300 MG CAPSULE PO SCH ×3 (09:58→20:48)
[2020-02-26] MEDS: FERROUS SULFATE 325 MG TABLET PO SCH ×3 (09:59→17:02)
[2020-02-26] MEDS: POTASSIUM CHLORIDE 20 MEQ TAB.ER.PRT PO SCH (09:59)
[2020-02-26 12:27] LABS: BASOPHILS % (AUTO) 0 % (0-1); EOSINOPHILS % (AUTO) 1 % (1-7); LYMPHOCYTES % (AUTO) 12 % (22-44); MEAN CORPUSCULAR HEMOGLOBIN 22.8 pg (27.0-34.8); MEAN CORPUSCULAR HGB CONC 31.8 g/dL (32.4-35.8); MEAN PLATELET VOLUME 6.9 fL (7.4-10.4); MONOCYTES % (AUTO) 7 % (2-9); NEUTROPHILS % (AUTO) 80 % (42-75); PLATELET COUNT 266 x10^3/uL (130-400); RED CELL DISTRIBUTION WIDTH 18.1 % (9.6-15.2)
[2020-02-26 12:30] LABS: MD NO
[2020-02-26 12:39] LABS: ALANINE AMINOTRANSFERASE 16 U/L (12-78); ALBUMIN 2.3 g/dL (3.4-5.0); ANION GAP 5 mmol/L (5-15); CALCIUM 7.9 mg/dL (8.5-10.1); CHLORIDE 106 mmol/L (98-107); CREATININE 0.62 mg/dL (0.55-1.02)
[2020-02-26 12:41] LABS: ALKALINE PHOSPHATASE 144 U/L (45-117); BILIRUBIN,TOTAL 0.2 mg/dL (0.2-1.0); TOTAL PROTEIN 4.6 g/dL (6.4-8.2)
[2020-02-26 13:25] VITALS: BP 140/78
[2020-02-26] MEDS: HYDROCORTISONE 10 MG TABLET PO SCH (20:48)
[2020-02-26 21:29] VITALS: BP 144/82
[2020-02-26] MEDS: CEFTRIAXONE PMX 2GM/50ML 50 ML IVPB SCH (22:24)
[2020-02-27 02:36] VITALS: BP 144/82
[2020-02-27] MEDS: POTASSIUM CHLORIDE 20 MEQ in LACTATED RINGERS 1,000 ML IV SCH ×2 (04:53→18:31)
[2020-02-27] MEDS: LEVOTHYROXINE 50 MCG TABLET PO SCH (05:06)
[2020-02-27 06:54] VITALS: BP 157/87
[2020-02-27] MEDS: FAMOTIDINE 20 MG TABLET PO SCH ×2 (08:28→21:57)
[2020-02-27] MEDS: MAGNESIUM CHLORIDE 70MG TAB DR PO SCH ×2 (08:28→21:56)
[2020-02-27] MEDS: LACOSAMIDE 50 MG TAB PO SCH ×2 (08:28→21:58)
[2020-02-27] MEDS: OXCARBAZEPINE 150 MG TABLET PO SCH ×2 (08:29→21:57)
[2020-02-27] MEDS: AMLODIPINE 10 MG TAB PO SCH (08:29)
[2020-02-27] MEDS: FLUDROCORTISONE 0.1 MG TABLET PO SCH (08:29)
[2020-02-27] MEDS: GABAPENTIN 300 MG CAPSULE PO SCH ×3 (08:30→21:57)
[2020-02-27] MEDS: FERROUS SULFATE 325 MG TABLET PO SCH ×3 (08:30→17:10)
[2020-02-27] MEDS: LEVETIRACETAM 500 MG TABLET PO SCH ×2 (08:31→21:56)
[2020-02-27] MEDS: QUETIAPINE 100MG TABLET PO SCH (08:31)
[2020-02-27] MEDS: HYDROCORTISONE 20 MG TABLET PO SCH (08:32)
[2020-02-27] MEDS: POTASSIUM CHLORIDE 20 MEQ TAB.ER.PRT PO SCH (08:33)
[2020-02-27 12:09] LABS: ALBUMIN 2.5 g/dL (3.4-5.0); ANION GAP 3 mmol/L (5-15); CALCIUM 8.1 mg/dL (8.5-10.1); CHLORIDE 106 mmol/L (98-107)
[2020-02-27 12:13] LABS: ALANINE AMINOTRANSFERASE 16 U/L (12-78); ALKALINE PHOSPHATASE 162 U/L (45-117); BILIRUBIN,TOTAL 0.2 mg/dL (0.2-1.0); CREATININE 0.61 mg/dL (0.55-1.02); TOTAL PROTEIN 5.1 g/dL (6.4-8.2)
[2020-02-27 13:28] VITALS: BP 127/78
[2020-02-27 18:37] VITALS: BP 119/72
[2020-02-27] MEDS: HYDROCORTISONE 10 MG TABLET PO SCH (21:56)
[2020-02-27] MEDS: CEFTRIAXONE PMX 2GM/50ML 50 ML IVPB SCH (22:17)
[2020-02-28 00:57] VITALS: BP 155/82
[2020-02-28] MEDS: LEVOTHYROXINE 50 MCG TABLET PO SCH (05:36)
[2020-02-28] MEDS: POTASSIUM CHLORIDE 20 MEQ in LACTATED RINGERS 1,000 ML IV SCH ×2 (06:04→22:23)
[2020-02-28 07:36] VITALS: BP 126/54
[2020-02-28] MEDS: POTASSIUM CHLORIDE 20 MEQ TAB.ER.PRT PO SCH (08:32)
[2020-02-28] MEDS: MAGNESIUM CHLORIDE 70MG TAB DR PO SCH ×2 (08:33→20:29)
[2020-02-28] MEDS: LEVETIRACETAM 500 MG TABLET PO SCH ×2 (08:34→20:30)
[2020-02-28] MEDS: OXCARBAZEPINE 150 MG TABLET PO SCH ×2 (08:34→20:29)
[2020-02-28] MEDS: QUETIAPINE 100MG TABLET PO SCH (08:34)
[2020-02-28] MEDS: AMLODIPINE 10 MG TAB PO SCH (08:34)
[2020-02-28] MEDS: HYDROCORTISONE 20 MG TABLET PO SCH (08:34)
[2020-02-28] MEDS: FERROUS SULFATE 325 MG TABLET PO SCH ×3 (08:34→15:53)
[2020-02-28] MEDS: GABAPENTIN 300 MG CAPSULE PO SCH ×3 (08:34→20:30)
[2020-02-28] MEDS: FLUDROCORTISONE 0.1 MG TABLET PO SCH (08:34)
[2020-02-28] MEDS: FAMOTIDINE 20 MG TABLET PO SCH ×2 (08:35→20:30)
[2020-02-28 12:21] VITALS: BP 119/71
[2020-02-28] MEDS ORDERED: CIPR250T27 PO ×2 (12:31)
[2020-02-28] MEDS: LACOSAMIDE 50 MG TAB PO SCH ×2 (12:54→20:30)
[2020-02-28 18:39] VITALS: BP 158/78
[2020-02-28] MEDS ORDERED: HYDROCORTISONE 5 MG TABLET ONE (20:15)
[2020-02-28] MEDS: HYDROCORTISONE 10 MG TABLET PO SCH (20:29)
[2020-02-28] MEDS: CEFTRIAXONE PMX 2GM/50ML 50 ML IVPB SCH (22:23)
[2020-02-29 04:47] VITALS: BP 159/90
[2020-02-29] MEDS: LEVOTHYROXINE 50 MCG TABLET PO SCH (05:02)
[2020-02-29 06:41] VITALS: BP 155/82
[2020-02-29] MEDS ORDERED: LEVOFLOXACIN/PMX 750MG/150ML 150 ML IV SCH (09:00)
[2020-02-29] MEDS: LACOSAMIDE 50 MG TAB PO SCH ×2 (09:35→19:53)
[2020-02-29] MEDS: AMLODIPINE 10 MG TAB PO SCH (09:36)
[2020-02-29] MEDS: MAGNESIUM CHLORIDE 70MG TAB DR PO SCH ×2 (09:36→19:52)
[2020-02-29] MEDS: HYDROCORTISONE 20 MG TABLET PO SCH (09:36)
[2020-02-29] MEDS: GABAPENTIN 300 MG CAPSULE PO SCH ×3 (09:36→19:52)
[2020-02-29] MEDS: OXCARBAZEPINE 150 MG TABLET PO SCH ×2 (09:36→19:52)
[2020-02-29] MEDS: FAMOTIDINE 20 MG TABLET PO SCH ×2 (09:36→19:52)
[2020-02-29] MEDS: LEVETIRACETAM 500 MG TABLET PO SCH ×2 (09:36→19:53)
[2020-02-29] MEDS: FERROUS SULFATE 325 MG TABLET PO SCH ×3 (09:36→15:51)
[2020-02-29] MEDS: POTASSIUM CHLORIDE 20 MEQ TAB.ER.PRT PO SCH (09:36)
[2020-02-29] MEDS: QUETIAPINE 100MG TABLET PO SCH (09:36)
[2020-02-29] MEDS: POTASSIUM CHLORIDE 20 MEQ in LACTATED RINGERS 1,000 ML IV SCH (09:37)
[2020-02-29] MEDS: FLUDROCORTISONE 0.1 MG TABLET PO SCH (09:37)
[2020-02-29 09:47] LABS: ANION GAP 3 mmol/L (5-15); CHLORIDE 106 mmol/L (98-107); CREATININE 0.61 mg/dL (0.55-1.02)
[2020-02-29 10:07] LABS: BASOPHILS % (AUTO) 1 % (0-1); EOSINOPHILS % (AUTO) 2 % (1-7); LYMPHOCYTES % (AUTO) 37 % (22-44); MEAN CORPUSCULAR HGB CONC 31.6 g/dL (32.4-35.8); MEAN PLATELET VOLUME 6.8 fL (7.4-10.4); MONOCYTES % (AUTO) 11 % (2-9); NEUTROPHILS % (AUTO) 50 % (42-75); PLATELET COUNT 340 x10^3/uL (130-400); RED BLOOD COUNT 4.36 x10^6/uL (3.82-5.3); RED CELL DISTRIBUTION WIDTH 18.5 % (9.6-15.2)
[2020-02-29 10:13] LABS: MD NO
[2020-02-29] MEDS: ACETAMINOPHEN 325 MG TABLET PO PRN (11:06)
[2020-02-29 12:08] VITALS: BP 128/78
[2020-02-29] MEDS ORDERED: FUROSEMIDE 20 MG/2 ML IV ONE (16:30)
[2020-02-29] MEDS ORDERED: POTASSIUM CHLORIDE 20 MEQ TAB.ER.PRT PO ONE ×2 (16:30→19:00)
[2020-02-29] MEDS ORDERED: FUROSEMIDE 10 MG/ML ORAL SOL PO ONE (16:30)
[2020-02-29] MEDS ORDERED: FUROSEMIDE 20 MG TABLET ONE (16:57)
[2020-02-29] MEDS: ENOXAPARIN 40 MG/0.4 ML SQ SCH (17:05)
[2020-02-29 18:40] VITALS: BP 154/89
[2020-02-29] MEDS: HYDROCORTISONE 10 MG TABLET PO SCH (19:52)
[2020-03-01 00:46] VITALS: BP 134/81
[2020-03-01] MEDS: LEVOTHYROXINE 50 MCG TABLET PO SCH (05:11)
[2020-03-01 06:56] VITALS: BP 152/75
[2020-03-01] MEDS ORDERED: LEVOFLOXACIN 250 MG TABLET PO SCH (09:00)
[2020-03-01] MEDS: FLUDROCORTISONE 0.1 MG TABLET PO SCH (09:05)
[2020-03-01] MEDS: MAGNESIUM CHLORIDE 70MG TAB DR PO SCH ×2 (09:05→20:21)
[2020-03-01] MEDS: FERROUS SULFATE 325 MG TABLET PO SCH ×3 (09:05→16:24)
[2020-03-01] MEDS: POTASSIUM CHLORIDE 20 MEQ TAB.ER.PRT PO SCH (09:06)
[2020-03-01] MEDS: AMLODIPINE 10 MG TAB PO SCH (09:06)
[2020-03-01] MEDS: LEVOFLOXACIN 250 MG TABLET PO SCH (09:08)
[2020-03-01] MEDS: LACOSAMIDE 50 MG TAB PO SCH ×2 (09:09→20:21)
[2020-03-01] MEDS: HYDROCORTISONE 20 MG TABLET PO SCH (09:09)
[2020-03-01] MEDS: LEVETIRACETAM 500 MG TABLET PO SCH ×2 (09:11→20:21)
[2020-03-01] MEDS: OXCARBAZEPINE 150 MG TABLET PO SCH ×2 (09:11→20:21)
[2020-03-01] MEDS: GABAPENTIN 300 MG CAPSULE PO SCH ×3 (09:11→20:21)
[2020-03-01] MEDS: FAMOTIDINE 20 MG TABLET PO SCH ×2 (09:11→20:21)
[2020-03-01] MEDS: QUETIAPINE 100MG TABLET PO SCH (09:12)
[2020-03-01 12:16] VITALS: BP 132/78
[2020-03-01] MEDS: ENOXAPARIN 40 MG/0.4 ML SQ SCH (16:25)
[2020-03-01] MEDS ORDERED: POTASSIUM CHLORIDE 20 MEQ TAB.ER.PRT PO ONE (17:00)
[2020-03-01] MEDS ORDERED: FUROSEMIDE 40 MG/4 ML IV ONE (17:00)
[2020-03-01] MEDS ORDERED: FUROSEMIDE 40 MG TABLET PO ONE (18:00)
[2020-03-01 18:39] VITALS: BP 158/92
[2020-03-01] MEDS: HYDROCORTISONE 10 MG TABLET PO SCH (20:21)
[2020-03-02 00:24] VITALS: BP 149/84
[2020-03-02 04:38] LABS: ANION GAP 4 mmol/L (5-15); CHLORIDE 101 mmol/L (98-107)
[2020-03-02 04:40] LABS: CREATININE 0.55 mg/dL (0.55-1.02)
[2020-03-02] MEDS: LEVOTHYROXINE 50 MCG TABLET PO SCH (05:14)
[2020-03-02 07:14] VITALS: BP 133/71
[2020-03-02] MEDS: FAMOTIDINE 20 MG TABLET PO SCH ×2 (08:07→20:59)
[2020-03-02] MEDS: FLUDROCORTISONE 0.1 MG TABLET PO SCH (08:08)
[2020-03-02] MEDS: LEVOFLOXACIN 250 MG TABLET PO SCH (08:08)
[2020-03-02] MEDS: MAGNESIUM CHLORIDE 70MG TAB DR PO SCH ×2 (08:09→20:59)
[2020-03-02] MEDS: AMLODIPINE 10 MG TAB PO SCH (08:09)
[2020-03-02] MEDS: QUETIAPINE 100MG TABLET PO SCH (08:09)
[2020-03-02] MEDS: POTASSIUM CHLORIDE 20 MEQ TAB.ER.PRT PO SCH (08:10)
[2020-03-02] MEDS: LEVETIRACETAM 500 MG TABLET PO SCH ×2 (08:10→21:00)
[2020-03-02] MEDS: HYDROCORTISONE 20 MG TABLET PO SCH (08:10)
[2020-03-02] MEDS: FERROUS SULFATE 325 MG TABLET PO SCH ×4 (08:11→17:21)
[2020-03-02] MEDS: LACOSAMIDE 50 MG TAB PO SCH ×2 (08:11→20:59)
[2020-03-02] MEDS: OXCARBAZEPINE 150 MG TABLET PO SCH ×2 (08:11→20:59)
[2020-03-02] MEDS: GABAPENTIN 300 MG CAPSULE PO SCH ×3 (08:11→20:59)
[2020-03-02 12:07] VITALS: BP 126/75
[2020-03-02] MEDS: ERGOCALCIFEROL 50,000 UNIT CAPSULE PO SCH (17:21)
[2020-03-02] MEDS: ENOXAPARIN 40 MG/0.4 ML SQ SCH (17:21)
[2020-03-02 18:59] VITALS: BP 138/78
[2020-03-02] MEDS: HYDROCORTISONE 10 MG TABLET PO SCH (20:59)
[2020-03-03 00:22] VITALS: BP 141/82
[2020-03-03] MEDS: LEVOTHYROXINE 50 MCG TABLET PO SCH (06:08)
[2020-03-03 09:35] VITALS: BP 152/86
[2020-03-03] MEDS: LEVETIRACETAM 500 MG TABLET PO SCH ×2 (10:17→20:39)
[2020-03-03] MEDS: AMLODIPINE 10 MG TAB PO SCH (10:17)
[2020-03-03] MEDS: QUETIAPINE 100MG TABLET PO SCH (10:17)
[2020-03-03] MEDS: GABAPENTIN 300 MG CAPSULE PO SCH ×3 (10:17→20:39)
[2020-03-03] MEDS: FLUDROCORTISONE 0.1 MG TABLET PO SCH (10:18)
[2020-03-03] MEDS: OXCARBAZEPINE 150 MG TABLET PO SCH ×2 (10:18→20:39)
[2020-03-03] MEDS: HYDROCORTISONE 20 MG TABLET PO SCH (10:18)
[2020-03-03] MEDS: LEVOFLOXACIN 250 MG TABLET PO SCH (10:18)
[2020-03-03] MEDS: FAMOTIDINE 20 MG TABLET PO SCH ×2 (10:19→20:39)
[2020-03-03] MEDS: FERROUS SULFATE 325 MG TABLET PO SCH ×3 (10:22→17:55)
[2020-03-03] MEDS: POTASSIUM CHLORIDE 20 MEQ TAB.ER.PRT PO SCH (10:23)
[2020-03-03 12:13] VITALS: BP 149/88
[2020-03-03] MEDS: LACOSAMIDE 50 MG TAB PO SCH ×2 (15:35→20:38)
[2020-03-03] MEDS: ENOXAPARIN 40 MG/0.4 ML SQ SCH (17:51)
[2020-03-03 19:57] VITALS: BP 145/84
[2020-03-03] MEDS: HYDROCORTISONE 10 MG TABLET PO SCH (20:39)
[2020-03-04 00:32] VITALS: BP 140/80
[2020-03-04] MEDS: LEVOTHYROXINE 50 MCG TABLET PO SCH (06:24)
[2020-03-04 07:40] VITALS: BP 154/87
[2020-03-04] MEDS: FERROUS SULFATE 325 MG TABLET PO SCH (08:00)
[2020-03-04] MEDS: LACOSAMIDE 50 MG TAB PO SCH ×2 (08:38→21:02)
[2020-03-04] MEDS: LEVETIRACETAM 500 MG TABLET PO SCH ×2 (08:38→21:02)
[2020-03-04] MEDS: OXCARBAZEPINE 150 MG TABLET PO SCH ×2 (08:39→21:02)
[2020-03-04] MEDS: FAMOTIDINE 20 MG TABLET PO SCH ×2 (08:39→21:02)
[2020-03-04] MEDS: GABAPENTIN 300 MG CAPSULE PO SCH ×3 (08:39→21:03)
[2020-03-04] MEDS: FLUDROCORTISONE 0.1 MG TABLET PO SCH (08:39)
[2020-03-04] MEDS: QUETIAPINE 100MG TABLET PO SCH (08:39)
[2020-03-04] MEDS: AMLODIPINE 10 MG TAB PO SCH (08:39)
[2020-03-04] MEDS: LEVOFLOXACIN 250 MG TABLET PO SCH (08:40)
[2020-03-04] MEDS: HYDROCORTISONE 20 MG TABLET PO SCH (08:44)
[2020-03-04] MEDS ORDERED: POTASSIUM CHLORIDE 40 MEQ in SODIUM CHLORIDE 0.9% 500 ML IV ONE (09:30)
[2020-03-04] MEDS: SPIRONOLACTONE 25 MG TABLET PO SCH ×2 (11:24→21:02)
[2020-03-04 14:06] VITALS: BP 124/74
[2020-03-04] MEDS: ENOXAPARIN 40 MG/0.4 ML SQ SCH (16:00)
[2020-03-04 19:20] VITALS: BP 139/88
[2020-03-04] MEDS: ACETAMINOPHEN 325 MG TABLET PO PRN (21:02)
[2020-03-04] MEDS: HYDROCORTISONE 10 MG TABLET PO SCH (21:02)
[2020-03-05 01:59] VITALS: BP 131/76
[2020-03-05 04:27] LABS: ANION GAP 4 mmol/L (5-15); CHLORIDE 101 mmol/L (98-107); CREATININE 0.68 mg/dL (0.55-1.02)
[2020-03-05 04:31] LABS: BASOPHILS % (AUTO) 0 % (0-1); EOSINOPHILS % (AUTO) 1 % (1-7); LYMPHOCYTES % (AUTO) 29 % (22-44); MEAN CORPUSCULAR HEMOGLOBIN 22.9 pg (27.0-34.8); MEAN CORPUSCULAR HGB CONC 31.6 g/dL (32.4-35.8); MEAN PLATELET VOLUME 6.7 fL (7.4-10.4); MONOCYTES % (AUTO) 9 % (2-9); NEUTROPHILS % (AUTO) 60 % (42-75); PLATELET COUNT 362 x10^3/uL (130-400); RED BLOOD COUNT 4.51 x10^6/uL (3.82-5.3); RED CELL DISTRIBUTION WIDTH 19.3 % (9.6-15.2)
[2020-03-05 04:33] LABS: MD NO
[2020-03-05] MEDS: LEVOTHYROXINE 50 MCG TABLET PO SCH (06:08)
[2020-03-05 07:46] VITALS: BP 165/83
[2020-03-05] MEDS: GABAPENTIN 300 MG CAPSULE PO SCH ×3 (08:32→21:53)
[2020-03-05] MEDS: FLUDROCORTISONE 0.1 MG TABLET PO SCH (08:32)
[2020-03-05] MEDS: LACOSAMIDE 50 MG TAB PO SCH ×2 (08:32→21:52)
[2020-03-05] MEDS: HYDROCORTISONE 20 MG TABLET PO SCH (08:32)
[2020-03-05] MEDS: SPIRONOLACTONE 25 MG TABLET PO SCH ×2 (08:33→21:52)
[2020-03-05] MEDS: LEVETIRACETAM 500 MG TABLET PO SCH ×2 (08:33→21:52)
[2020-03-05] MEDS: QUETIAPINE 100MG TABLET PO SCH (08:33)
[2020-03-05] MEDS: OXCARBAZEPINE 150 MG TABLET PO SCH ×2 (08:34→21:53)
[2020-03-05] MEDS: AMLODIPINE 10 MG TAB PO SCH (08:34)
[2020-03-05 13:28] VITALS: BP 134/77
[2020-03-05] MEDS: ENOXAPARIN 40 MG/0.4 ML SQ SCH (16:21)
[2020-03-05] MEDS ORDERED: LOPERAMIDE 2 MG CAPSULE ONE (17:11)
[2020-03-05] MEDS ORDERED: LOPERAMIDE 2 MG CAPSULE PO ONE (17:30)
[2020-03-05 18:33] VITALS: BP 151/82
[2020-03-05] MEDS: FAMOTIDINE 20 MG TABLET PO SCH (21:51)
[2020-03-05] MEDS: HYDROCORTISONE 10 MG TABLET PO SCH (21:52)
[2020-03-06 00:07] VITALS: BP 160/89
[2020-03-06] MEDS: LEVOTHYROXINE 50 MCG TABLET PO SCH (05:46)
[2020-03-06 06:40] VITALS: BP 169/98
[2020-03-06 07:51] VITALS: BP 162/91
[2020-03-06] MEDS: SPIRONOLACTONE 25 MG TABLET PO SCH ×2 (08:54→20:14)
[2020-03-06] MEDS: LOSARTAN 50MG TABLET PO SCH (08:54)
[2020-03-06] MEDS: HYDROCORTISONE 20 MG TABLET PO SCH (08:54)
[2020-03-06] MEDS: GABAPENTIN 300 MG CAPSULE PO SCH ×3 (08:54→20:13)
[2020-03-06] MEDS: FLUDROCORTISONE 0.1 MG TABLET PO SCH (08:55)
[2020-03-06] MEDS: OXCARBAZEPINE 150 MG TABLET PO SCH ×2 (08:55→20:14)
[2020-03-06] MEDS: QUETIAPINE 100MG TABLET PO SCH (08:55)
[2020-03-06] MEDS: LEVETIRACETAM 500 MG TABLET PO SCH ×2 (08:55→20:13)
[2020-03-06] MEDS: AMLODIPINE 10 MG TAB PO SCH (08:55)
[2020-03-06] MEDS: LOPERAMIDE 2 MG CAPSULE PO PRN ×3 (09:43→23:05)
[2020-03-06] MEDS: LACOSAMIDE 50 MG TAB PO SCH ×2 (09:43→20:13)
[2020-03-06 13:33] VITALS: BP 113/71
[2020-03-06] MEDS: ENOXAPARIN 40 MG/0.4 ML SQ SCH (15:59)
[2020-03-06 18:51] VITALS: BP 108/67
[2020-03-06] MEDS: FAMOTIDINE 20 MG TABLET PO SCH (20:13)
[2020-03-06] MEDS: HYDROCORTISONE 10 MG TABLET PO SCH (20:13)
[2020-03-07 01:53] VITALS: BP 103/65
[2020-03-07] MEDS: LEVOTHYROXINE 50 MCG TABLET PO SCH (06:13)
[2020-03-07 07:32] VITALS: BP 126/76
[2020-03-07] MEDS: LACOSAMIDE 50 MG TAB PO SCH ×2 (09:37→21:18)
[2020-03-07] MEDS: AMLODIPINE 10 MG TAB PO SCH (09:37)
[2020-03-07] MEDS: HYDROCORTISONE 20 MG TABLET PO SCH (09:37)
[2020-03-07] MEDS: OXCARBAZEPINE 150 MG TABLET PO SCH ×2 (09:38→21:19)
[2020-03-07] MEDS: LOSARTAN 50MG TABLET PO SCH (09:38)
[2020-03-07] MEDS: FLUDROCORTISONE 0.1 MG TABLET PO SCH (09:38)
[2020-03-07] MEDS: QUETIAPINE 100MG TABLET PO SCH (09:38)
[2020-03-07] MEDS: SPIRONOLACTONE 25 MG TABLET PO SCH ×2 (09:38→21:19)
[2020-03-07] MEDS: LEVETIRACETAM 500 MG TABLET PO SCH ×2 (09:38→21:19)
[2020-03-07] MEDS: GABAPENTIN 300 MG CAPSULE PO SCH ×3 (09:38→21:18)
[2020-03-07] MEDS: LOPERAMIDE 2 MG CAPSULE PO PRN ×2 (10:39→17:21)
[2020-03-07 13:07] VITALS: BP 115/69
[2020-03-07] MEDS: ENOXAPARIN 40 MG/0.4 ML SQ SCH (17:21)
[2020-03-07 18:40] VITALS: BP 120/71
[2020-03-07] MEDS: ACETAMINOPHEN 325 MG TABLET PO PRN (21:18)
[2020-03-07] MEDS: FAMOTIDINE 20 MG TABLET PO SCH (21:19)
[2020-03-07] MEDS: HYDROCORTISONE 10 MG TABLET PO SCH (21:19)
[2020-03-07 23:28] VITALS: BP 167/91
[2020-03-08 06:26] VITALS: BP 154/80
[2020-03-08] MEDS: LEVOTHYROXINE 50 MCG TABLET PO SCH (06:29)
[2020-03-08] MEDS: OXCARBAZEPINE 150 MG TABLET PO SCH ×2 (09:42→20:05)
[2020-03-08] MEDS: HYDROCORTISONE 20 MG TABLET PO SCH (09:42)
[2020-03-08] MEDS: SPIRONOLACTONE 25 MG TABLET PO SCH ×2 (09:43→20:05)
[2020-03-08] MEDS: LACOSAMIDE 50 MG TAB PO SCH ×2 (09:43→20:06)
[2020-03-08] MEDS: LEVETIRACETAM 500 MG TABLET PO SCH ×2 (09:44→20:06)
[2020-03-08] MEDS: LOSARTAN 50MG TABLET PO SCH (09:44)
[2020-03-08] MEDS: FLUDROCORTISONE 0.1 MG TABLET PO SCH (09:44)
[2020-03-08] MEDS: AMLODIPINE 10 MG TAB PO SCH (09:44)
[2020-03-08] MEDS: GABAPENTIN 300 MG CAPSULE PO SCH ×3 (09:44→20:06)
[2020-03-08] MEDS: QUETIAPINE 100MG TABLET PO SCH (10:10)
[2020-03-08] MEDS ORDERED: DIPHENOXYLATE/ATROPINE TABLET PO PRN ×3 (11:00)
[2020-03-08] MEDS ORDERED: DIPHENOXYLATE/ATROPINE ORAL SOL PO PRN (11:00)
[2020-03-08] MEDS: DIPHENOXYLATE/ATROPINE TABLET PO PRN ×2 (11:10→20:06)
[2020-03-08] MEDS: ENOXAPARIN 40 MG/0.4 ML SQ SCH (17:16)
[2020-03-08] MEDS: HYDROCORTISONE 10 MG TABLET PO SCH (20:06)
[2020-03-08] MEDS: FAMOTIDINE 20 MG TABLET PO SCH (20:06)
[2020-03-08 20:37] VITALS: BP 158/88
[2020-03-09 01:22] VITALS: BP 175/91
[2020-03-09 01:58] VITALS: BP 161/92
[2020-03-09] MEDS: LEVOTHYROXINE 50 MCG TABLET PO SCH (05:55)
[2020-03-09 07:04] VITALS: BP 161/92
[2020-03-09] MEDS: HYDROCORTISONE 20 MG TABLET PO SCH (09:13)
[2020-03-09] MEDS: SPIRONOLACTONE 25 MG TABLET PO SCH ×2 (09:13→20:59)
[2020-03-09] MEDS: OXCARBAZEPINE 150 MG TABLET PO SCH ×2 (09:14→21:00)
[2020-03-09] MEDS: LEVETIRACETAM 500 MG TABLET PO SCH ×2 (09:14→21:00)
[2020-03-09] MEDS: FLUDROCORTISONE 0.1 MG TABLET PO SCH (09:14)
[2020-03-09] MEDS: DIPHENOXYLATE/ATROPINE TABLET PO PRN ×2 (09:15→20:59)
[2020-03-09] MEDS: LOSARTAN 50MG TABLET PO SCH (09:15)
[2020-03-09] MEDS: LACOSAMIDE 50 MG TAB PO SCH ×2 (09:15→21:00)
[2020-03-09] MEDS: GABAPENTIN 300 MG CAPSULE PO SCH ×3 (09:16→20:59)
[2020-03-09] MEDS: QUETIAPINE 100MG TABLET PO SCH (09:16)
[2020-03-09] MEDS: AMLODIPINE 10 MG TAB PO SCH (09:17)
[2020-03-09 12:15] VITALS: BP 149/61
[2020-03-09] MEDS: ENOXAPARIN 40 MG/0.4 ML SQ SCH (15:49)
[2020-03-09] MEDS: ERGOCALCIFEROL 50,000 UNIT CAPSULE PO SCH (16:07)
[2020-03-09 19:17] VITALS: BP 142/85
[2020-03-09] MEDS: FAMOTIDINE 20 MG TABLET PO SCH (20:59)
[2020-03-09] MEDS: HYDROCORTISONE 10 MG TABLET PO SCH (21:00)
[2020-03-10 00:33] VITALS: BP 152/85
[2020-03-10] MEDS: LEVOTHYROXINE 50 MCG TABLET PO SCH (05:50)
[2020-03-10 07:28] LABS: CREATININE 0.61 mg/dL (0.55-1.02)
[2020-03-10 07:56] VITALS: BP 124/71
[2020-03-10] MEDS: SPIRONOLACTONE 25 MG TABLET PO SCH ×2 (09:30→21:12)
[2020-03-10] MEDS: OXCARBAZEPINE 150 MG TABLET PO SCH ×2 (09:31→21:12)
[2020-03-10] MEDS: GABAPENTIN 300 MG CAPSULE PO SCH ×3 (09:31→21:12)
[2020-03-10] MEDS: LOPERAMIDE 2 MG CAPSULE PO PRN (09:31)
[2020-03-10] MEDS: HYDROCORTISONE 20 MG TABLET PO SCH (09:31)
[2020-03-10] MEDS: LOSARTAN 50MG TABLET PO SCH (09:31)
[2020-03-10] MEDS: LACOSAMIDE 50 MG TAB PO SCH ×2 (09:31→21:12)
[2020-03-10] MEDS: FLUDROCORTISONE 0.1 MG TABLET PO SCH (09:31)
[2020-03-10] MEDS: AMLODIPINE 10 MG TAB PO SCH (09:31)
[2020-03-10] MEDS: LEVETIRACETAM 500 MG TABLET PO SCH ×2 (09:31→21:11)
[2020-03-10] MEDS: QUETIAPINE 100MG TABLET PO SCH (09:32)
[2020-03-10 12:31] VITALS: BP 156/65
[2020-03-10] MEDS: DIPHENOXYLATE/ATROPINE TABLET PO PRN ×2 (14:47→21:22)
[2020-03-10] MEDS: ENOXAPARIN 40 MG/0.4 ML SQ SCH (16:04)
[2020-03-10 19:28] VITALS: BP 160/88
[2020-03-10] MEDS: HYDROCORTISONE 10 MG TABLET PO SCH (21:12)
[2020-03-10] MEDS: FAMOTIDINE 20 MG TABLET PO SCH (21:12)
[2020-03-11 01:07] VITALS: BP 146/81
[2020-03-11] MEDS: LEVOTHYROXINE 50 MCG TABLET PO SCH (05:13)
[2020-03-11 06:33] VITALS: BP 140/65
[2020-03-11] MEDS: QUETIAPINE 100MG TABLET PO SCH (09:00)
[2020-03-11] MEDS: OXCARBAZEPINE 150 MG TABLET PO SCH ×2 (09:54→20:05)
[2020-03-11] MEDS: LOSARTAN 50MG TABLET PO SCH (09:55)
[2020-03-11] MEDS: AMLODIPINE 10 MG TAB PO SCH (09:55)
[2020-03-11] MEDS: FLUDROCORTISONE 0.1 MG TABLET PO SCH (09:55)
[2020-03-11] MEDS: HYDROCORTISONE 20 MG TABLET PO SCH (09:55)
[2020-03-11] MEDS: SPIRONOLACTONE 25 MG TABLET PO SCH ×2 (09:55→20:06)
[2020-03-11] MEDS: GABAPENTIN 300 MG CAPSULE PO SCH ×3 (09:55→20:05)
[2020-03-11] MEDS: LACOSAMIDE 50 MG TAB PO SCH ×2 (09:56→20:05)
[2020-03-11] MEDS: LEVETIRACETAM 500 MG TABLET PO SCH ×2 (09:56→20:06)
[2020-03-11 12:18] VITALS: BP 158/88
[2020-03-11] MEDS: LOPERAMIDE 2 MG CAPSULE PO PRN ×2 (13:28→20:21)
[2020-03-11] MEDS: ENOXAPARIN 40 MG/0.4 ML SQ SCH (17:27)
[2020-03-11 18:57] VITALS: BP 142/83
[2020-03-11] MEDS: FAMOTIDINE 20 MG TABLET PO SCH (20:05)
[2020-03-11] MEDS: HYDROCORTISONE 10 MG TABLET PO SCH (20:05)
[2020-03-12] MEDS: MELATONIN 5 MG TABLET PO PRN (00:45)
[2020-03-12 00:51] VITALS: BP 158/93
[2020-03-12] MEDS: LEVOTHYROXINE 50 MCG TABLET PO SCH (05:46)
[2020-03-12 08:14] VITALS: BP 150/93
[2020-03-12] MEDS: AMLODIPINE 10 MG TAB PO SCH (08:59)
[2020-03-12] MEDS: HYDROCORTISONE 20 MG TABLET PO SCH (08:59)
[2020-03-12] MEDS: LEVETIRACETAM 500 MG TABLET PO SCH ×2 (08:59→20:21)
[2020-03-12] MEDS: GABAPENTIN 300 MG CAPSULE PO SCH ×3 (08:59→20:21)
[2020-03-12] MEDS: FLUDROCORTISONE 0.1 MG TABLET PO SCH (08:59)
[2020-03-12] MEDS: OXCARBAZEPINE 150 MG TABLET PO SCH ×2 (08:59→20:21)
[2020-03-12] MEDS: LOSARTAN 50MG TABLET PO SCH (08:59)
[2020-03-12] MEDS: SPIRONOLACTONE 25 MG TABLET PO SCH ×2 (08:59→20:21)
[2020-03-12] MEDS: QUETIAPINE 100MG TABLET PO SCH (09:00)
[2020-03-12] MEDS: LOPERAMIDE 2 MG CAPSULE PO PRN (09:15)
[2020-03-12] MEDS: LACOSAMIDE 50 MG TAB PO SCH (11:20)
[2020-03-12 13:19] VITALS: BP 145/82
[2020-03-12] MEDS: ENOXAPARIN 40 MG/0.4 ML SQ SCH (18:31)
[2020-03-12 19:01] VITALS: BP 153/70
[2020-03-12] MEDS: FAMOTIDINE 20 MG TABLET PO SCH (20:21)
[2020-03-12] MEDS: HYDROCORTISONE 10 MG TABLET PO SCH (20:21)
[2020-03-12] MEDS: DIPHENOXYLATE/ATROPINE TABLET PO PRN (20:21)
[2020-03-12] MEDS: LACOSAMIDE 200 MG TABLET PO SCH (20:22)
[2020-03-13 02:00] VITALS: BP 110/65
[2020-03-13] MEDS: LEVOTHYROXINE 50 MCG TABLET PO SCH (06:28)
[2020-03-13 07:10] VITALS: BP 148/80
[2020-03-13 08:09] LABS: CREATININE 0.68 mg/dL (0.55-1.02)
[2020-03-13] MEDS: DIPHENOXYLATE/ATROPINE TABLET PO PRN ×2 (09:05→15:44)
[2020-03-13] MEDS: FLUDROCORTISONE 0.1 MG TABLET PO SCH (09:06)
[2020-03-13] MEDS: SPIRONOLACTONE 25 MG TABLET PO SCH ×2 (09:06→22:13)
[2020-03-13] MEDS: LOSARTAN 50MG TABLET PO SCH (09:06)
[2020-03-13] MEDS: GABAPENTIN 300 MG CAPSULE PO SCH ×3 (09:06→22:13)
[2020-03-13] MEDS: HYDROCORTISONE 20 MG TABLET PO SCH (09:06)
[2020-03-13] MEDS: OXCARBAZEPINE 150 MG TABLET PO SCH ×2 (09:06→22:12)
[2020-03-13] MEDS: LEVETIRACETAM 500 MG TABLET PO SCH ×2 (09:07→22:13)
[2020-03-13] MEDS: QUETIAPINE 100MG TABLET PO SCH (09:07)
[2020-03-13] MEDS: AMLODIPINE 10 MG TAB PO SCH (09:07)
[2020-03-13] MEDS: LACOSAMIDE 200 MG TABLET PO SCH ×2 (09:08→22:13)
[2020-03-13 12:11] VITALS: BP 106/67
[2020-03-13] MEDS: ENOXAPARIN 40 MG/0.4 ML SQ SCH (15:44)
[2020-03-13 18:57] VITALS: BP 145/82
[2020-03-13] MEDS: HYDROCORTISONE 10 MG TABLET PO SCH (22:12)
[2020-03-13] MEDS: FAMOTIDINE 20 MG TABLET PO SCH (22:13)
[2020-03-14 00:34] VITALS: BP 148/89
[2020-03-14] MEDS: LEVOTHYROXINE 50 MCG TABLET PO SCH (06:36)
[2020-03-14 07:07] VITALS: BP 166/94
[2020-03-14] MEDS: GABAPENTIN 300 MG CAPSULE PO SCH ×3 (08:44→20:30)
[2020-03-14] MEDS: HYDROCORTISONE 20 MG TABLET PO SCH (08:44)
[2020-03-14] MEDS: LACOSAMIDE 200 MG TABLET PO SCH ×2 (08:44→20:30)
[2020-03-14] MEDS: AMLODIPINE 10 MG TAB PO SCH (08:45)
[2020-03-14] MEDS: LOSARTAN 50MG TABLET PO SCH (08:45)
[2020-03-14] MEDS: FLUDROCORTISONE 0.1 MG TABLET PO SCH (08:45)
[2020-03-14] MEDS: QUETIAPINE 100MG TABLET PO SCH (08:46)
[2020-03-14] MEDS: SPIRONOLACTONE 25 MG TABLET PO SCH ×2 (08:46→20:30)
[2020-03-14] MEDS: LEVETIRACETAM 500 MG TABLET PO SCH ×2 (08:46→20:30)
[2020-03-14] MEDS: OXCARBAZEPINE 150 MG TABLET PO SCH ×2 (08:46→20:30)
[2020-03-14 09:09] LABS: CALCIUM 8.9 mg/dL (8.5-10.1)
[2020-03-14 11:40] VITALS: BP 129/78
[2020-03-14] MEDS: ENOXAPARIN 40 MG/0.4 ML SQ SCH (16:40)
[2020-03-14 18:25] VITALS: BP 151/92
[2020-03-14] MEDS: DIPHENOXYLATE/ATROPINE TABLET PO PRN (18:44)
[2020-03-14] MEDS: HYDROCORTISONE 10 MG TABLET PO SCH (20:30)
[2020-03-14] MEDS: FAMOTIDINE 20 MG TABLET PO SCH (20:30)
[2020-03-15 00:41] VITALS: BP 159/82
[2020-03-15] MEDS: LEVOTHYROXINE 50 MCG TABLET PO SCH (06:21)
[2020-03-15 06:59] VITALS: BP 142/88
[2020-03-15] MEDS: HYDROCORTISONE 20 MG TABLET PO SCH (08:33)
[2020-03-15] MEDS: LEVETIRACETAM 500 MG TABLET PO SCH ×2 (08:33→20:58)
[2020-03-15] MEDS: LOSARTAN 50MG TABLET PO SCH (08:34)
[2020-03-15] MEDS: SPIRONOLACTONE 25 MG TABLET PO SCH ×2 (08:34→20:59)
[2020-03-15] MEDS: GABAPENTIN 300 MG CAPSULE PO SCH ×3 (08:34→20:58)
[2020-03-15] MEDS: AMLODIPINE 10 MG TAB PO SCH (08:34)
[2020-03-15] MEDS: FLUDROCORTISONE 0.1 MG TABLET PO SCH (08:34)
[2020-03-15] MEDS: OXCARBAZEPINE 150 MG TABLET PO SCH ×2 (08:35→20:59)
[2020-03-15] MEDS: QUETIAPINE 100MG TABLET PO SCH (08:35)
[2020-03-15] MEDS: LACOSAMIDE 200 MG TAB PO SCH ×2 (08:36→20:59)
[2020-03-15 12:26] VITALS: BP 116/79
[2020-03-15] MEDS: ENOXAPARIN 40 MG/0.4 ML SQ SCH (15:58)
[2020-03-15 19:46] VITALS: BP 129/77
[2020-03-15] MEDS: HYDROCORTISONE 10 MG TABLET PO SCH (20:58)
[2020-03-15] MEDS: FAMOTIDINE 20 MG TABLET PO SCH (20:58)
[2020-03-15] MEDS: DIPHENOXYLATE/ATROPINE TABLET PO PRN (21:20)
[2020-03-16 01:26] VITALS: BP 148/86
[2020-03-16] MEDS: ACETAMINOPHEN 325 MG TABLET PO PRN (02:53)
[2020-03-16 05:00] LABS: CREATININE 0.68 mg/dL (0.55-1.02)
[2020-03-16] MEDS: LEVOTHYROXINE 50 MCG TABLET PO SCH (05:17)
[2020-03-16 06:40] VITALS: BP 152/77
[2020-03-16] MEDS: GABAPENTIN 300 MG CAPSULE PO SCH ×3 (08:47→21:00)
[2020-03-16] MEDS: AMLODIPINE 10 MG TAB PO SCH (08:47)
[2020-03-16] MEDS: OXCARBAZEPINE 150 MG TABLET PO SCH ×2 (08:47→21:00)
[2020-03-16] MEDS: LEVETIRACETAM 500 MG TABLET PO SCH ×2 (08:47→21:00)
[2020-03-16] MEDS: HYDROCORTISONE 20 MG TABLET PO SCH (08:47)
[2020-03-16] MEDS: SPIRONOLACTONE 25 MG TABLET PO SCH ×2 (08:47→21:01)
[2020-03-16] MEDS: LOSARTAN 50MG TABLET PO SCH (08:48)
[2020-03-16] MEDS: QUETIAPINE 100MG TABLET PO SCH (08:48)
[2020-03-16] MEDS: FLUDROCORTISONE 0.1 MG TABLET PO SCH (08:48)
[2020-03-16] MEDS: DIPHENOXYLATE/ATROPINE TABLET PO PRN (09:19)
[2020-03-16] MEDS: LACOSAMIDE 200 MG TAB PO SCH ×2 (09:19→21:01)
[2020-03-16 12:03] VITALS: BP 106/67
[2020-03-16] MEDS: ERGOCALCIFEROL 50,000 UNIT CAPSULE PO SCH (15:00)
[2020-03-16] MEDS: ENOXAPARIN 40 MG/0.4 ML SQ SCH (15:01)
[2020-03-16 19:34] VITALS: BP 147/83
[2020-03-16] MEDS: FAMOTIDINE 20 MG TABLET PO SCH (21:00)
[2020-03-16] MEDS: HYDROCORTISONE 10 MG TABLET PO SCH (21:01)
[2020-03-17 02:30] VITALS: BP 153/83
[2020-03-17] MEDS: LEVOTHYROXINE 50 MCG TABLET PO SCH (06:03)
[2020-03-17 08:19] VITALS: BP 130/80
[2020-03-17] MEDS: QUETIAPINE 100MG TABLET PO SCH (09:00)
[2020-03-17] MEDS: LACOSAMIDE 200 MG TAB PO SCH ×2 (09:00→21:00)
[2020-03-17 09:39] LABS: BASOPHILS % (AUTO) 1 % (0-1); EOSINOPHILS % (AUTO) 1 % (1-7); LYMPHOCYTES % (AUTO) 31 % (22-44); MEAN CORPUSCULAR HEMOGLOBIN 23.3 pg (27.0-34.8); MEAN CORPUSCULAR HGB CONC 32.2 g/dL (32.4-35.8); MEAN PLATELET VOLUME 6.9 fL (7.4-10.4); MONOCYTES % (AUTO) 12 % (2-9); NEUTROPHILS % (AUTO) 55 % (42-75); PLATELET COUNT 335 x10^3/uL (130-400); RED BLOOD COUNT 4.57 x10^6/uL (3.82-5.3); RED CELL DISTRIBUTION WIDTH 19.4 % (9.6-15.2)
[2020-03-17 09:43] LABS: MD NO
[2020-03-17 09:47] LABS: ANION GAP 6 mmol/L (5-15); CALCIUM 8.2 mg/dL (8.5-10.1); CHLORIDE 103 mmol/L (98-107); CREATININE 0.73 mg/dL (0.55-1.02)
[2020-03-17] MEDS ORDERED: LACTATED RINGERS 1,000 ML IVBOLUS ONE (10:30)
[2020-03-17] MEDS: SPIRONOLACTONE 25 MG TABLET PO SCH ×2 (10:32→22:05)
[2020-03-17] MEDS: FLUDROCORTISONE 0.1 MG TABLET PO SCH (10:32)
[2020-03-17] MEDS: LEVETIRACETAM 500 MG TABLET PO SCH ×2 (10:32→22:02)
[2020-03-17] MEDS: AMLODIPINE 10 MG TAB PO SCH (10:33)
[2020-03-17] MEDS: GABAPENTIN 300 MG CAPSULE PO SCH ×3 (10:33→22:03)
[2020-03-17] MEDS: LOSARTAN 50MG TABLET PO SCH (10:33)
[2020-03-17] MEDS: HYDROCORTISONE 20 MG TABLET PO SCH (10:33)
[2020-03-17] MEDS: OXCARBAZEPINE 150 MG TABLET PO SCH ×2 (10:33→22:01)
[2020-03-17] MEDS: CEFTRIAXONE PMX 2GM/50ML 50 ML IVPB SCH (11:59)
[2020-03-17] MEDS: DOXYCYCLINE 100 MG in DEXTROSE 5% 250 ML IV SCH ×2 (12:39→23:02)
[2020-03-17 13:31] VITALS: BP 149/66
[2020-03-17 15:12] LABS: MICROSCOPIC AUTO
[2020-03-17] MEDS: ENOXAPARIN 40 MG/0.4 ML SQ SCH (15:51)
[2020-03-17] MEDS ORDERED: POTASSIUM CHLORIDE 20 MEQ TAB.ER.PRT PO SCH (17:00)
[2020-03-17 19:42] VITALS: BP 109/71
[2020-03-17] MEDS: FAMOTIDINE 20 MG TABLET PO SCH (21:00)
[2020-03-17] MEDS ORDERED: FAMOTIDINE 40 MG TABLET ONE (21:53)
[2020-03-17] MEDS: HYDROCORTISONE 10 MG TABLET PO SCH (23:03)
[2020-03-18 01:05] VITALS: BP 153/97
[2020-03-18] MEDS: LEVOTHYROXINE 50 MCG TABLET PO SCH (04:00)
[2020-03-18 06:22] LABS: BASOPHILS % (AUTO) 1 % (0-1); EOSINOPHILS % (AUTO) 2 % (1-7); LYMPHOCYTES % (AUTO) 20 % (22-44); MEAN CORPUSCULAR HEMOGLOBIN 23.4 pg (27.0-34.8); MEAN CORPUSCULAR HGB CONC 32.3 g/dL (32.4-35.8); MEAN PLATELET VOLUME 7.3 fL (7.4-10.4); MONOCYTES % (AUTO) 13 % (2-9); NEUTROPHILS % (AUTO) 65 % (42-75); PLATELET COUNT 305 x10^3/uL (130-400); RED BLOOD COUNT 4.37 x10^6/uL (3.82-5.3); RED CELL DISTRIBUTION WIDTH 19.4 % (9.6-15.2)
[2020-03-18 06:29] LABS: MD NO
[2020-03-18 06:33] LABS: ANION GAP 8 mmol/L (5-15); CHLORIDE 105 mmol/L (98-107); CREATININE 0.66 mg/dL (0.55-1.02)
[2020-03-18] MEDS ORDERED: MAGNESIUM SULFATE PMX 4GM/100M 100 ML IVPB ONE (07:00)
[2020-03-18 07:27] VITALS: BP 157/79
[2020-03-18] MEDS ORDERED: HYDROCORTISONE 10 MG TABLET ONE (08:17)
[2020-03-18] MEDS: FLUDROCORTISONE 0.1 MG TABLET PO SCH (08:43)
[2020-03-18] MEDS: LACOSAMIDE 200 MG TAB PO SCH ×2 (08:44→20:43)
[2020-03-18] MEDS: POTASSIUM CHLORIDE 20 MEQ TAB.ER.PRT PO SCH ×3 (08:44→20:40)
[2020-03-18] MEDS: OXCARBAZEPINE 150 MG TABLET PO SCH ×2 (08:44→20:39)
[2020-03-18] MEDS: SPIRONOLACTONE 25 MG TABLET PO SCH ×2 (08:45→20:37)
[2020-03-18] MEDS: LOSARTAN 50MG TABLET PO SCH (08:45)
[2020-03-18] MEDS: AMLODIPINE 10 MG TAB PO SCH (08:45)
[2020-03-18] MEDS: QUETIAPINE 100MG TABLET PO SCH (08:45)
[2020-03-18] MEDS: LEVETIRACETAM 500 MG TABLET PO SCH ×2 (08:45→20:39)
[2020-03-18] MEDS: GABAPENTIN 300 MG CAPSULE PO SCH ×3 (08:45→20:37)
[2020-03-18] MEDS: HYDROCORTISONE 20 MG TABLET PO SCH (09:00)
[2020-03-18 12:28] VITALS: BP 149/85
[2020-03-18] MEDS: DOXYCYCLINE 100 MG in DEXTROSE 5% 250 ML IV SCH (14:35)
[2020-03-18] MEDS: ENOXAPARIN 40 MG/0.4 ML SQ SCH (16:04)
[2020-03-18] MEDS: CEFTRIAXONE PMX 2GM/50ML 50 ML IVPB SCH (16:04)
[2020-03-18] MEDS: LOPERAMIDE 2 MG CAPSULE PO PRN (16:30)
[2020-03-18 20:13] VITALS: BP 133/84
[2020-03-18] MEDS ORDERED: FAMOTIDINE 40 MG TABLET ONE (20:32)
[2020-03-18] MEDS: FAMOTIDINE 20 MG TABLET PO SCH (20:38)
[2020-03-18] MEDS: HYDROCORTISONE 10 MG TABLET PO SCH (20:38)
[2020-03-18] MEDS: LACTOBACILLUS CHEW TABLET PO SCH (20:39)
[2020-03-19] MEDS: DOXYCYCLINE 100 MG in DEXTROSE 5% 250 ML IV SCH ×2 (01:48→15:42)
[2020-03-19 01:54] VITALS: BP 166/90
[2020-03-19] MEDS: LEVOTHYROXINE 50 MCG TABLET PO SCH (04:28)
[2020-03-19 06:01] LABS: BASOPHILS % (AUTO) 0 % (0-1); EOSINOPHILS % (AUTO) 1 % (1-7); LYMPHOCYTES % (AUTO) 25 % (22-44); MEAN CORPUSCULAR HEMOGLOBIN 23.5 pg (27.0-34.8); MEAN CORPUSCULAR HGB CONC 32.3 g/dL (32.4-35.8); MEAN PLATELET VOLUME 7.2 fL (7.4-10.4); MONOCYTES % (AUTO) 11 % (2-9); NEUTROPHILS % (AUTO) 62 % (42-75); PLATELET COUNT 324 x10^3/uL (130-400); RED BLOOD COUNT 4.73 x10^6/uL (3.82-5.3); RED CELL DISTRIBUTION WIDTH 19.5 % (9.6-15.2)
[2020-03-19 06:07] LABS: CHLORIDE 104 mmol/L (98-107)
[2020-03-19 06:18] LABS: MD NO
[2020-03-19 06:19] LABS: ANION GAP 6 mmol/L (5-15); CALCIUM 8.5 mg/dL (8.5-10.1)
[2020-03-19 08:25] VITALS: BP 160/90
[2020-03-19] MEDS ORDERED: HYDROCORTISONE 10 MG TABLET ONE (10:05)
[2020-03-19] MEDS: GABAPENTIN 300 MG CAPSULE PO SCH ×3 (10:11→20:46)
[2020-03-19] MEDS: FLUDROCORTISONE 0.1 MG TABLET PO SCH (10:12)
[2020-03-19] MEDS: QUETIAPINE 100MG TABLET PO SCH (10:12)
[2020-03-19] MEDS: OXCARBAZEPINE 150 MG TABLET PO SCH ×2 (10:12→20:46)
[2020-03-19] MEDS: LACTOBACILLUS CHEW TABLET PO SCH ×3 (10:12→20:44)
[2020-03-19] MEDS: LEVETIRACETAM 500 MG TABLET PO SCH ×2 (10:12→20:45)
[2020-03-19] MEDS: AMLODIPINE 10 MG TAB PO SCH (10:12)
[2020-03-19] MEDS: SPIRONOLACTONE 25 MG TABLET PO SCH ×2 (10:13→20:46)
[2020-03-19] MEDS: HYDROCORTISONE 20 MG TABLET PO SCH (10:13)
[2020-03-19] MEDS: LOSARTAN 50MG TABLET PO SCH (10:13)
[2020-03-19] MEDS: LACOSAMIDE 200 MG TAB PO SCH ×2 (10:19→22:14)
[2020-03-19 14:45] VITALS: BP 144/80
[2020-03-19] MEDS: CEFTRIAXONE PMX 2GM/50ML 50 ML IVPB SCH (17:21)
[2020-03-19] MEDS: ENOXAPARIN 40 MG/0.4 ML SQ SCH (17:22)
[2020-03-19] MEDS: HYDROCORTISONE 10 MG TABLET PO SCH (20:45)
[2020-03-19] MEDS: FAMOTIDINE 20 MG TABLET PO SCH (20:46)
[2020-03-19 20:52] VITALS: BP 117/72
[2020-03-20 01:11] VITALS: BP 110/74
[2020-03-20] MEDS: DOXYCYCLINE 100 MG in DEXTROSE 5% 250 ML IV SCH (02:58)
[2020-03-20 05:00] LABS: ANION GAP 6 mmol/L (5-15); CALCIUM 8.4 mg/dL (8.5-10.1); CHLORIDE 102 mmol/L (98-107); CREATININE 0.71 mg/dL (0.55-1.02)
[2020-03-20] MEDS: LEVOTHYROXINE 50 MCG TABLET PO SCH ×2 (05:01→05:27)
[2020-03-20 06:56] VITALS: BP 140/85
[2020-03-20] MEDS: HYDROCORTISONE 20 MG TABLET PO SCH (09:00)
[2020-03-20] MEDS ORDERED: HYDROCORTISONE 10 MG TABLET ONE (10:29)
[2020-03-20] MEDS: LACTOBACILLUS CHEW TABLET PO SCH ×3 (10:44→19:29)
[2020-03-20] MEDS: LOSARTAN 50MG TABLET PO SCH (10:44)
[2020-03-20] MEDS: LEVETIRACETAM 500 MG TABLET PO SCH ×2 (10:45→19:31)
[2020-03-20] MEDS: GABAPENTIN 300 MG CAPSULE PO SCH ×3 (10:46→19:30)
[2020-03-20] MEDS: LACOSAMIDE 200 MG TAB PO SCH ×2 (10:46→20:08)
[2020-03-20] MEDS: QUETIAPINE 100MG TABLET PO SCH (10:47)
[2020-03-20] MEDS: OXCARBAZEPINE 150 MG TABLET PO SCH ×2 (10:47→19:31)
[2020-03-20] MEDS: FLUDROCORTISONE 0.1 MG TABLET PO SCH (10:47)
[2020-03-20] MEDS: LOPERAMIDE 2 MG CAPSULE PO PRN (10:47)
[2020-03-20] MEDS: AMLODIPINE 10 MG TAB PO SCH (10:47)
[2020-03-20 12:21] VITALS: BP 98/62
[2020-03-20] MEDS: SPIRONOLACTONE 25 MG TABLET PO SCH ×2 (17:31→18:58)
[2020-03-20] MEDS: ENOXAPARIN 40 MG/0.4 ML SQ SCH (17:31)
[2020-03-20] MEDS: DOXYCYCLINE 100MG TABLET PO SCH (19:30)
[2020-03-20] MEDS: CEFDINIR 300 MG CAPSULE PO SCH (19:30)
[2020-03-20] MEDS: HYDROCORTISONE 10 MG TABLET PO SCH (19:30)
[2020-03-20] MEDS: FAMOTIDINE 20 MG TABLET PO SCH (19:31)
[2020-03-20 20:11] VITALS: BP 132/78
[2020-03-21 05:53] VITALS: BP 153/92
[2020-03-21] MEDS: LEVOTHYROXINE 50 MCG TABLET PO SCH (05:57)
[2020-03-21] MEDS: HYDROCORTISONE 20 MG TABLET PO SCH (09:00)
[2020-03-21 09:30] VITALS: BP 149/79
[2020-03-21] MEDS ORDERED: HYDROCORTISONE 10 MG TABLET ONE (10:04)
[2020-03-21] MEDS: SPIRONOLACTONE 25 MG TABLET PO SCH ×2 (10:28→19:28)
[2020-03-21] MEDS: CEFDINIR 300 MG CAPSULE PO SCH ×2 (10:29→19:27)
[2020-03-21] MEDS: AMLODIPINE 10 MG TAB PO SCH (10:29)
[2020-03-21] MEDS: GABAPENTIN 300 MG CAPSULE PO SCH ×3 (10:29→19:28)
[2020-03-21] MEDS: FLUDROCORTISONE 0.1 MG TABLET PO SCH (10:29)
[2020-03-21] MEDS: LACTOBACILLUS CHEW TABLET PO SCH ×3 (10:29→19:27)
[2020-03-21] MEDS: QUETIAPINE 100MG TABLET PO SCH (10:30)
[2020-03-21] MEDS: DOXYCYCLINE 100MG TABLET PO SCH ×2 (10:31→19:28)
[2020-03-21] MEDS: LEVETIRACETAM 500 MG TABLET PO SCH ×2 (10:31→19:27)
[2020-03-21] MEDS: LOSARTAN 50MG TABLET PO SCH (10:31)
[2020-03-21] MEDS: OXCARBAZEPINE 150 MG TABLET PO SCH ×2 (10:31→19:29)
[2020-03-21] MEDS: LACOSAMIDE 200 MG TAB PO SCH ×2 (10:32→19:28)
[2020-03-21 13:30] VITALS: BP 127/72
[2020-03-21] MEDS: ENOXAPARIN 40 MG/0.4 ML SQ SCH (16:17)
[2020-03-21 19:05] VITALS: BP 150/92
[2020-03-21] MEDS: HYDROCORTISONE 10 MG TABLET PO SCH (19:28)
[2020-03-21] MEDS: FAMOTIDINE 20 MG TABLET PO SCH (19:29)
[2020-03-22] VITALS (13 sets, daily range): BP systolic 114–157; BP diastolic 73–92
[2020-03-22] MEDS: LEVOTHYROXINE 50 MCG TABLET PO SCH (05:33)
[2020-03-22] MEDS ORDERED: HYDROCORTISONE 10 MG TABLET ONE (09:26)
[2020-03-22] MEDS: DOXYCYCLINE 100MG TABLET PO SCH ×2 (09:30→21:39)
[2020-03-22] MEDS: FLUDROCORTISONE 0.1 MG TABLET PO SCH (09:30)
[2020-03-22] MEDS: LEVETIRACETAM 500 MG TABLET PO SCH ×2 (09:31→21:40)
[2020-03-22] MEDS: AMLODIPINE 10 MG TAB PO SCH (09:31)
[2020-03-22] MEDS: LACOSAMIDE 200 MG TAB PO SCH ×2 (09:31→21:43)
[2020-03-22] MEDS: GABAPENTIN 300 MG CAPSULE PO SCH ×3 (09:31→21:39)
[2020-03-22] MEDS: LOSARTAN 50MG TABLET PO SCH (09:32)
[2020-03-22] MEDS: SPIRONOLACTONE 25 MG TABLET PO SCH ×2 (09:32→21:38)
[2020-03-22] MEDS: QUETIAPINE 100MG TABLET PO SCH (09:32)
[2020-03-22] MEDS: LACTOBACILLUS CHEW TABLET PO SCH ×3 (09:32→21:38)
[2020-03-22] MEDS: CEFDINIR 300 MG CAPSULE PO SCH ×2 (09:32→21:39)
[2020-03-22] MEDS: HYDROCORTISONE 20 MG TABLET PO SCH (09:35)
[2020-03-22] MEDS: OXCARBAZEPINE 150 MG TABLET PO SCH ×2 (09:35→21:40)
--- NOTE | 2020-03-22 12:23 | NUR ---
EMANI GONZALES - Fall Risk Medication(s) present and receiving anticoagulants.
[2020-03-22] MEDS: ENOXAPARIN 40 MG/0.4 ML SQ SCH (16:00)
[2020-03-22] MEDS ORDERED: OXYcodone/APAP 5/325MG TABLET ONE (20:34)
[2020-03-22] MEDS: OXYcodone/APAP 5/325MG TABLET PO PRN (20:37)
[2020-03-22] MEDS: HYDROCORTISONE 10 MG TABLET PO SCH (21:38)
[2020-03-22] MEDS: FAMOTIDINE 20 MG TABLET PO SCH (21:39)
[2020-03-23 00:54] VITALS: BP_SYST 135; BP_SYST 139; BP_DIAS 85; BP_DIAS 94
[2020-03-23] MEDS: MELATONIN 5 MG TABLET PO PRN (01:34)
[2020-03-23] MEDS: LEVOTHYROXINE 50 MCG TABLET PO SCH (06:39)
[2020-03-23 06:53] VITALS: BP 136/80
[2020-03-23] MEDS ORDERED: HYDROCORTISONE 10 MG TABLET ONE (09:37)
[2020-03-23] MEDS: LOSARTAN 50MG TABLET PO SCH (09:43)
[2020-03-23] MEDS: LACTOBACILLUS CHEW TABLET PO SCH ×3 (09:43→21:16)
[2020-03-23] MEDS: AMLODIPINE 10 MG TAB PO SCH (09:43)
[2020-03-23] MEDS: OXCARBAZEPINE 150 MG TABLET PO SCH ×2 (09:43→21:17)
[2020-03-23] MEDS: GABAPENTIN 300 MG CAPSULE PO SCH ×3 (09:43→21:16)
[2020-03-23] MEDS: CEFDINIR 300 MG CAPSULE PO SCH (09:43)
[2020-03-23] MEDS: LEVETIRACETAM 500 MG TABLET PO SCH ×2 (09:44→21:17)
[2020-03-23] MEDS: HYDROCORTISONE 20 MG TABLET PO SCH (09:44)
[2020-03-23] MEDS: FLUDROCORTISONE 0.1 MG TABLET PO SCH (09:44)
[2020-03-23] MEDS: QUETIAPINE 100MG TABLET PO SCH (09:45)
[2020-03-23] MEDS: LACOSAMIDE 200 MG TAB PO SCH ×2 (09:45→21:00)
[2020-03-23] MEDS: DOXYCYCLINE 100MG TABLET PO SCH (09:45)
[2020-03-23] MEDS: SPIRONOLACTONE 25 MG TABLET PO SCH ×2 (09:45→21:17)
[2020-03-23 14:55] VITALS: BP 135/86
[2020-03-23] MEDS: ENOXAPARIN 40 MG/0.4 ML SQ SCH (16:19)
[2020-03-23] MEDS: ERGOCALCIFEROL 50,000 UNIT CAPSULE PO SCH (16:19)
[2020-03-23 18:58] VITALS: BP 135/76
[2020-03-23] MEDS: OXYcodone/APAP 5/325MG TABLET PO PRN (21:15)
[2020-03-23] MEDS: FAMOTIDINE 20 MG TABLET PO SCH (21:17)
[2020-03-23] MEDS: HYDROCORTISONE 10 MG TABLET PO SCH (21:17)
[2020-03-24] MEDS: MELATONIN 5 MG TABLET PO PRN (01:33)
[2020-03-24 02:15] VITALS: BP 144/83
[2020-03-24] MEDS: LEVOTHYROXINE 50 MCG TABLET PO SCH (04:46)
[2020-03-24 05:54] LABS: ANION GAP 4 mmol/L (5-15); CALCIUM 8.2 mg/dL (8.5-10.1); CHLORIDE 100 mmol/L (98-107)
[2020-03-24 05:55] LABS: CREATININE 0.69 mg/dL (0.55-1.02)
[2020-03-24 05:56] LABS: BASOPHILS % (AUTO) 0 % (0-1); EOSINOPHILS % (AUTO) 2 % (1-7); LYMPHOCYTES % (AUTO) 32 % (22-44); MEAN CORPUSCULAR HEMOGLOBIN 23.3 pg (27.0-34.8); MEAN CORPUSCULAR HGB CONC 32.1 g/dL (32.4-35.8); MEAN PLATELET VOLUME 7.3 fL (7.4-10.4); MONOCYTES % (AUTO) 10 % (2-9); NEUTROPHILS % (AUTO) 55 % (42-75); PLATELET COUNT 305 x10^3/uL (130-400); RED BLOOD COUNT 4.45 x10^6/uL (3.82-5.3); RED CELL DISTRIBUTION WIDTH 19.9 % (9.6-15.2)
[2020-03-24 06:22] LABS: MD NO
[2020-03-24 07:51] VITALS: BP_SYST 143; BP_SYST 169; BP_DIAS 79; BP_DIAS 99
[2020-03-24] MEDS ORDERED: HYDROCORTISONE 10 MG TABLET ONE (09:21)
[2020-03-24] MEDS: HYDROCORTISONE 20 MG TABLET PO SCH (09:29)
[2020-03-24] MEDS: SPIRONOLACTONE 25 MG TABLET PO SCH (09:30)
[2020-03-24] MEDS: POTASSIUM CHLORIDE 20 MEQ TAB.ER.PRT PO SCH ×2 (09:30→16:00)
[2020-03-24] MEDS: LACTOBACILLUS CHEW TABLET PO SCH ×2 (09:30→16:00)
[2020-03-24] MEDS: FLUDROCORTISONE 0.1 MG TABLET PO SCH (09:30)
[2020-03-24] MEDS: GABAPENTIN 300 MG CAPSULE PO SCH ×2 (09:30→15:59)
[2020-03-24] MEDS: LEVETIRACETAM 500 MG TABLET PO SCH (09:30)
[2020-03-24] MEDS: LOSARTAN 50MG TABLET PO SCH (09:30)
[2020-03-24] MEDS: QUETIAPINE 100MG TABLET PO SCH (09:31)
[2020-03-24] MEDS: AMLODIPINE 10 MG TAB PO SCH (09:31)
[2020-03-24] MEDS: OXCARBAZEPINE 150 MG TABLET PO SCH (11:54)
[2020-03-24] MEDS: LACOSAMIDE 200 MG TAB PO SCH (11:54)
[2020-03-24 14:00] VITALS: BP 135/72
[2020-03-24] MEDS: OXYcodone/APAP 5/325MG TABLET PO PRN (14:18)
[2020-03-24] MEDS ORDERED: ACID1TAB7 PO (15:41)
[2020-03-24] MEDS ORDERED: LOSA50TA2 PO (15:41)
[2020-03-24] MEDS ORDERED: LOPE2CAP PO (15:41)
[2020-03-24] MEDS ORDERED: SPIR25TA PO (15:41)
[2020-03-24] MEDS ORDERED: OXYcodone/APAP 5/325MG PO (15:41)
[2020-03-24] MEDS: ENOXAPARIN 40 MG/0.4 ML SQ SCH (15:59)
== END 2020-03-24 18:39 | DRG 871 ==
LOC: ED 13:43 → EDIP 13:46 → 4WST 14:53 → 4NE 03-17 15:37
PROVIDERS: ADMIT Internal Medicine; ATTEND Internal Medicine
PROC: 0T9B70Z Drainage of Bladder with Drainage Device, Via Natural or Artificial Opening (ICD-10-PCS; principal; 2020-02-24)
DX: A41.9 Sepsis, unspecified organism (principal); G93.41 Metabolic encephalopathy; J96.01 Acute respiratory failure with hypoxia; E43 Unspecified severe protein-calorie malnutrition; J18.9 Pneumonia, unspecified organism; N39.0 Urinary tract infection, site not specified; Z68.1 Body mass index [BMI] 19.9 or less, adult; E27.1 Primary adrenocortical insufficiency; E87.1 Hypo-osmolality and hyponatremia; I24.8 Other forms of acute ischemic heart disease; R53.81 Other malaise; Z20.828 Contact with and (suspected) exposure to other viral communicable diseases; S82.832A Other fracture of upper and lower end of left fibula, initial encounter for closed fracture; E87.6 Hypokalemia; Z88.0 Allergy status to penicillin; B96.20 Unspecified Escherichia coli [E. coli] as the cause of diseases classified elsewhere; E03.9 Hypothyroidism, unspecified; M25.472 Effusion, left ankle; W18.39XA Other fall on same level, initial encounter; D50.9 Iron deficiency anemia, unspecified; E83.42 Hypomagnesemia; E86.0 Dehydration; E87.70 Fluid overload, unspecified; F31.9 Bipolar disorder, unspecified; G40.909 Epilepsy, unspecified, not intractable, without status epilepticus; G89.29 Other chronic pain; I10 Essential (primary) hypertension; Z82.49 Family history of ischemic heart disease and other diseases of the circulatory system; Z83.3 Family history of diabetes mellitus; Z79.52 Long term (current) use of systemic steroids; Y93.89 Activity, other specified; Y92.89 Other specified places as the place of occurrence of the external cause; Y99.8 Other external cause status; R19.7 Diarrhea, unspecified
CPT/HCPCS: 36415; 70553; 71045; 80048; 80053; 80061; 80307; 81001; 82140; 82306; 82310; 82436; 82565; 82570; 82607; 82962; 83036; 83540; 83550; 83735; 83970; 84100; 84133; 84300; 84443; 84484; 85025; 85610; 85651; 86480; 87040; 87077; 87086; 87186; 93005; 93970; 95819; 96374; 99291; G0378; J0696; J1650; J1956; J2405; J3480; J7060; A9575; J2060; J3475; J7040; J7120; U0003